=== PATIENT | male | born 1940 | race Caucasian/White ===

== ENCOUNTER 2018-11-05 11:47 | Emergency (ER) | payer MEDICARE ==
[2018-11-05 12:27] LABS: #Basophils 0.1 thou/uL (0.0-0.2); #Eosinphils 0.2 thou/uL (0.0-0.7); #Lymphocytes 1.2 thou/uL (1.20-3.40); #Monocytes 0.7 thou/uL (0.11-0.59); #Neutrophils 12.8 thou/uL (1.40-6.50); %Basophils 0.4 % (0.0-1.0); %Eosinophils 1.2 % (0.0-10.0); %Lymphocytes 7.7 % (21.0-51.0); %Monocytes 4.7 % (0.0-10.0); Hemoglobin 10.7 g/dL (14.0-18.0); Mean Corpuscular HGB CONC 31.9 g/dL (32.0-36.0); Mean Corpuscular Hemoglobin 29.1 pg (27.0-31.0); Mean Corpuscular Volume 91.3 fL (78.0-98.0); Mean Platelet Volume 5.3 fL (7.4-10.4); Platelet Count 294 thou/uL (130-400); RBC Distribution Width 13.4 % (11.5-14.5); Red Blood Cell (RBC) Count 3.67 mill/uL (4.70-6.10); White Blood Cell (WBC) Count 14.9 thou/uL (4.8-10.8)
[2018-11-05 12:41] LABS: ALT (SGPT) 57 U/L (8-55); AST (SGOT) 39 U/L (5-34); Albumin 3.5 g/dL (3.4-4.8); Alkaline Phosphatase 130 U/L (40-150); Anion Gap 19 mmol/L (10-20); BUN (Urea Nitrogen) 52 mg/dL (8.4-25.7); Bilirubin, Total 0.6 mg/dL (0.2-1.2); CK (CPK) 58 U/L (30-200); Calc. Creatinine Clearance 0 mL/min (70-130); Calcium 9.6 mg/dL (7.8-10.44); Carbon Dioxide 17 mmol/L (23-31); Chloride 102 mmol/L (98-107); Estimated GFR-MDRD 19; Globulin 5.2 g/dL (2.4-3.5); Glucose 121 mg/dL (83-110); Potassium 4.5 mmol/L (3.5-5.1); Protein, Total 8.7 g/dL (5.8-8.1); Sodium 133 mmol/L (136-145)
[2018-11-05] MEDS ORDERED: Sodium Chloride 0.9% 1,000 ML ONE ×2 (12:48→13:50)
[2018-11-05] MEDS ORDERED: Aspirin Chewable 81 MG TAB ONE ×2 (12:48→12:51)
[2018-11-05 12:59] LABS: CKMB 2.9 ng/mL (0-6.6)
--- NOTE | 2018-11-05 13:27 | RAD ---
PORTABLE AP CHEST XRAY: DATE: 11/05/2018. HISTORY: Cough and shortness of breath, chest congestion. COMPARISON: None available. FINDINGS: The cardiac silhouette and pulmonary vasculature are within normal limits. The lungs are clear. The re is mild right convex curvature of the thoracic spine. There is calcification in the thoracic aort a. 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 There jenkins s appear to be narrowing of each subacromial space partially imaged, and findings may be related to c hronic rotator cuff tears bilaterally. IMPRESSION: No acute cardiopulmonary process. POS: [facility]
[2018-11-05] MEDS ORDERED: Vancomycin HCl 500 MG VIAL ONE (13:50)
[2018-11-05] MEDS ORDERED: Sodium Chloride 0.9% 250 ML 250 ML ONE (13:50)
== END 2018-11-05 14:15 | disposition short-term general hospital (02) ==
LOC: NAV ERS 11:47
DX: I21.4 Non-ST elevation (NSTEMI) myocardial infarction (principal); I95.9 Hypotension, unspecified; I10 Essential (primary) hypertension; Z87.891 Personal history of nicotine dependence; Z79.899 Other long term (current) drug therapy
CPT/HCPCS: 36415; 71045; 80053; 82550; 82553; 83605; 84484; 85025; 87040; 93005; 96361; 96365; J3370; J7050

== ENCOUNTER 2018-11-15 21:21 | Inpatient (IN) | payer MEDICARE ==
[2018-11-15] MEDS ORDERED: Calcium Carbonate 500 MG ChewTAB PO PRN (22:22)
[2018-11-16] MEDS ORDERED: Sodium Chloride 0.9% 20 ML ONE (00:03)
[2018-11-16] MEDS: Ondansetron ODT 4 MG TAB PO PRN ×3 (00:34→11:05)
[2018-11-16] MEDS: Piperacillin/Tazobactam 2.25 GM in Sodium Chloride 0.9% 100 ML IVPB SCH ×3 (00:58→17:38)
[2018-11-16 05:18] LABS: #Eosinphils 0.3 thou/uL (0.0-0.7); #Monocytes 0.7 thou/uL (0.11-0.59); %Basophils 0.3 % (0.0-1.0); %Eosinophils 2.4 % (0.0-10.0); %Lymphocytes 8.6 % (21.0-51.0); %Monocytes 5.4 % (0.0-10.0); %Neutrophils 83.4 % (42.0-75.0); Hemoglobin 9.4 g/dL (14.0-18.0); Mean Corpuscular HGB CONC 32.4 g/dL (32.0-36.0); Mean Corpuscular Volume 92.5 fL (78.0-98.0); Mean Platelet Volume 5.6 fL (7.4-10.4); Platelet Count 233 thou/uL (130-400); Red Blood Cell (RBC) Count 3.13 mill/uL (4.70-6.10)
[2018-11-16 05:37] LABS: ALT (SGPT) 20 U/L (8-55); AST (SGOT) 19 U/L (5-34); Albumin 2.3 g/dL (3.4-4.8); Alkaline Phosphatase 88 U/L (40-150); Anion Gap 10 mmol/L (10-20); BUN (Urea Nitrogen) 21 mg/dL (8.4-25.7); Bilirubin, Total 0.4 mg/dL (0.2-1.2); Calc. Creatinine Clearance 85 mL/min (70-130); Calcium 8.6 mg/dL (7.8-10.44); Carbon Dioxide 27 mmol/L (23-31); Chloride 104 mmol/L (98-107); Estimated GFR-MDRD 57; Globulin 3.5 g/dL (2.4-3.5); Glucose 98 mg/dL (83-110); Protein, Total 5.8 g/dL (5.8-8.1); Sodium 138 mmol/L (136-145)
[2018-11-16 05:48] LABS: Potassium 2.9 mmol/L (3.5-5.1)
[2018-11-16 05:56] LABS: Bilirubin Negative (Negative); Blood, Urine Large (Negative); Clarity Slightly Cloudy (Clear); Glucose, Urine (Dipstick) Negative (Negative); Leukocyte Small (Negative); Nitrite Negative (Negative); Protein, Urine (Dipstick) 30 mg/dL (Neg-Trace); Specific Gravity, Urine 1.015 (1.005-1.030); Urobilinogen 0.2 mg/dL (0.2-1.0); pH, Urine 5.5 (5.0-9.0)
[2018-11-16 05:57] LABS: Bacteria/HPF 2+ HPF (None Seen); RBC/HPF GREATER THAN 50-TNTC HPF (0-3)
[2018-11-16] MEDS: Furosemide 40 MG TAB PO SCH ×2 (06:31→13:07)
[2018-11-16] MEDS ORDERED: Apixaban 5 MG TAB PO SCH (09:00)
[2018-11-16] MEDS: Senokot S 8.6-50 MG TAB PO SCH ×2 (09:03→21:51)
[2018-11-16] MEDS: FLAVOXATE 100 MG PO SCH ×3 (09:04→21:52)
[2018-11-16] MEDS: Trospium 20 MG TAB PO SCH ×2 (09:04→21:51)
[2018-11-16] MEDS: Tamsulosin HCl 0.4 MG CAP PO SCH (09:04)
[2018-11-16] MEDS: Polyethylene Glycol 3350 17 GM Packet PO SCH (09:05)
[2018-11-16] MEDS ORDERED: Potassium Chloride 10 MEQ in Premix Bag 1 BAG IVPB SCH (13:00)
[2018-11-16] MEDS ORDERED: Potassium Chloride 20 MEQ TAB PO SCH ×2 (13:00)
[2018-11-16] MEDS: Potassium Chloride 10 MEQ in Premix Bag 1 BAG IVPB SCH ×2 (13:03→14:34)
[2018-11-16] MEDS: D5 NS w/ 40 mEq KCl 1,000 ML IV SCH (13:07)
--- NOTE | 2018-11-16 13:38 | RAD ---
TWO VIEWS ABDOMEN: INDICATION: Hiccups with hypoactive bowel sounds. FINDINGS: There are gas-filled loops of dilated small bowel within the central abdomen. There is a gas-filled dilated loop of colon. There is fecal material seen within the right hemicolon. No acute osseous ab normality is evident. IMPRESSION: Findings suspicious for ileus versus partial small bowel obstruction. Recommend consideration for a CT of the abdomen and pelvis with IV contrast. POS: [facility]
--- NOTE | 2018-11-16 15:29 | HP ---
CHIEF COMPLAINT: Sepsis, secondary to urinary tract infection, and left lower extremity DVT and PE for long-term IV antibiotics and therapy. BRIEF HISTORY: This is a pleasant, overweight 78-year-old male who is known to me as I have taken care of him in the past, presented to the emergency room with complaints of dysuria, shortness of breath, and left lower extremity swelling. He apparently has noticed that swelling for 3 days, and on the morning of admission, he woke up with shortness of breath. He also has history of recurrent UTI. He was evaluated in the emergency room in [place] and was diagnosed with hypotension and urinary tract infection. He was hydrated with 3 L of normal saline and was given one dose of vancomycin, and sent to [facility] Emergency Room where he was given one dose of Rocephin and had a lower extremity ultrasound venous Doppler done, which showed DVT. He was started on pressors and was managed by a trade show specialist. Echocardiogram showed ejection fraction of 55% to 60%, mild mitral regurgitation, and mild tricuspid regurgitation. He also was noted to have hematuria, and a bladder ultrasound done, showed an irregularly-thickened bladder wall and some debris within the bladder. He underwent a cystoscopy and was noted to have some bladder tumors, which were biopsied by Dr. Cummins. Dr. Cummins apparently wanted him on half dose anticoagulation due to his risk of bleeding, but Critical Care and Cardiology wanted him on full dose. He also needs to be on 4 weeks of IV antibiotics here and possibly go home on IV ertapenem according to Dr. Fuchs. He is now on Eliquis 10 mg b.i.d. for 10 days, then he will be back to 5 mg b.i.d. currently, the patient is having hiccups, and he is also spitting up some brownish black mucus, which he states he has been doing since Thursday. He states that he was constipated, and he did have a bowel movement and after that transiently, he had no nausea or hiccups, but now, it is back. He apparently had a bowel movement within the last 12 hours. He denies any history of similar episodes in the past. He denies any chest pain or shortness of breath. He denies any burning sensation in his stomach. PAST MEDICAL HISTORY: Hypertension. PAST SURGICAL HISTORY: Multiple orthopedic surgeries. FAMILY HISTORY: Positive for coronary artery disease. PSYCHOSOCIAL HISTORY: He is a former smoker, more than [id number] history of smoking. He also has history of alcohol abuse in the past. No recreational drug use. REVIEW OF SYSTEMS: CARDIOVASCULAR SYSTEM: Denies any chest pain, shortness of breath, palpitations, PND, orthopnea, or pedal edema. RESPIRATORY SYSTEM: Denies any chronic cough, expectoration, or pleuritic type chest pain. GASTROINTESTINAL SYSTEM: Denies any hematemesis, melena, or hematochezia. He has had some problems with constipation, but apparently, had a bowel movement yesterday. He is having hiccups which apparently resolved when he had a bowel movement. GENITOURINARY SYSTEM: History of recurrent UTI and hematuria. Recently diagnosed with bladder tumors, possibly bladder cancer. MUSCULOSKELETAL SYSTEM: Occasional joint pains. HEENT: Denies any difficulty speech, vision, hearing, or swallowing. PHYSICAL EXAMINATION: GENERAL: A pleasant overweight 78-year-old male who is resting comfortably and in no apparent distress except for the hiccups. He has been spitting up this blackish brownish mucus/sputum. He denies any abdominal pain or discomfort. VITAL SIGNS: He is afebrile, heart rate is 75, respirations 20, oxygen saturation 95% on room air, and blood pressure 133/80. HEENT: Normocephalic, atraumatic. Pupils equal and reactive to light and accommodation. No JVD, thyromegaly, cervical lymphadenopathy, or throat exudates. No carotid bruits. CARDIOVASCULAR: S1 and S2 plus. Rate and rhythm regular. RESPIRATORY: Normal vesicular breath sounds with decreased breath sounds in the bases. ABDOMEN: Soft, obese, nontender. Bowel sounds are hypoactive. No organomegaly. No palpable mass. EXTREMITIES: Without cyanosis or clubbing. 2+ to 3+ edema to the left lower extremity. CENTRAL NERVOUS SYSTEM: Awake and responsive. He is able to recognize me from his previous visits. Cranial nerves 2 through 12 grossly nonfocal. Generalized weakness. LABORATORY VALUES: From this morning, white count is 12.0, H and H 9.4 and 28.9, and platelet count 233. Chemistry shows a sodium of 138, potassium was low at 2.9, and BUN and creatinine are 21 and 1.24. Urinalysis was done yesterday, which shows greater than 50, [id number]-count rbc's, 7 to 10 wbc's, 4 to 6 epithelial cells, and 2+ bacteria. IMPRESSION: 1. Urinary tract infection with Proteus mirabilis. 2. Left lower extremity deep venous thrombosis and pulmonary embolism. 3. Hematuria and history of recurrent urinary tract infection. 4. Possible bladder tumor. 5. Resolved sepsis and acute kidney injury and dehydration. 6. Hypokalemia. 7. Obesity. 8. Persistent hiccups and constipation. Rule out ileus or obstruction. 9. Deconditioning. 10. History of hypertension. PLAN: 1. Continue admission medications. 2. Nursing called me this morning about his potassium being 2.9. I ordered potassium 40 mEq p.o. now and repeat level at noon. Unfortunately, they gave him a dose of Lasix 40 mg. I have asked nursing now to give him 10 mEq of potassium premixed bags IV over 1 hour each, x2 bags. I also asked them to give him 40 mEq of potassium p.o. x1 now and recheck a basic metabolic panel at 5 p.m. He is also refusing his meals. I have asked him to start him on D5 normal saline with 40 mEq of potassium at 75 mL an hour. I have also ordered a stat KUB, but he may need a CT scan of the abdomen. I also advised patient that he may need an NG tube placed. 3. Continue IV Zosyn. 4. Continue Eliquis. 5. Decubitus precautions. 6. PT and OT eval and treat, but will hold them today. 7. Discussed with the patient and nursing in detail. Informed media services director to file an incident report. 8. No family at bedside. 9. Monitor respiratory status and cardiovascular status. Job ID: [id number]
[2018-11-16 17:40] LABS: Anion Gap 10 mmol/L (10-20); BUN (Urea Nitrogen) 23 mg/dL (8.4-25.7); Calc. Creatinine Clearance 85 mL/min (70-130); Calcium 8.4 mg/dL (7.8-10.44); Carbon Dioxide 27 mmol/L (23-31); Chloride 103 mmol/L (98-107); Estimated GFR-MDRD 56; Glucose 113 mg/dL (83-110); Potassium 3.4 mmol/L (3.5-5.1); Sodium 137 mmol/L (136-145)
[2018-11-16] MEDS: Enoxaparin Sodium 120 MG/0.8 ML SYRINGE SC SCH (21:50)
[2018-11-16] MEDS: Finasteride 5 MG TAB PO SCH (21:51)
[2018-11-16 22:52] VITALS: BMI 35.6
[2018-11-17] MEDS: Piperacillin/Tazobactam 2.25 GM in Sodium Chloride 0.9% 100 ML IVPB SCH ×3 (01:01→16:44)
[2018-11-17 05:09] LABS: #Eosinphils 0.4 thou/uL (0.0-0.7); #Lymphocytes 1.1 thou/uL (1.20-3.40); #Monocytes 0.6 thou/uL (0.11-0.59); #Neutrophils 7.2 thou/uL (1.40-6.50); %Basophils 0.3 % (0.0-1.0); %Eosinophils 4.7 % (0.0-10.0); %Lymphocytes 12.1 % (21.0-51.0); %Monocytes 6.7 % (0.0-10.0); %Neutrophils 76.2 % (42.0-75.0); Hemoglobin 8.9 g/dL (14.0-18.0); Mean Corpuscular HGB CONC 31.5 g/dL (32.0-36.0); Mean Corpuscular Hemoglobin 29.4 pg (27.0-31.0); Mean Corpuscular Volume 93.1 fL (78.0-98.0); Mean Platelet Volume 5.6 fL (7.4-10.4); Platelet Count 232 thou/uL (130-400); RBC Distribution Width 15.1 % (11.5-14.5); Red Blood Cell (RBC) Count 3.04 mill/uL (4.70-6.10); White Blood Cell (WBC) Count 9.4 thou/uL (4.8-10.8)
[2018-11-17 05:28] LABS: Anion Gap 9 mmol/L (10-20); BUN (Urea Nitrogen) 23 mg/dL (8.4-25.7); Calc. Creatinine Clearance 80 mL/min (70-130); Calcium 8.2 mg/dL (7.8-10.44); Carbon Dioxide 28 mmol/L (23-31); Chloride 106 mmol/L (98-107); Estimated GFR-MDRD 52; Glucose 110 mg/dL (83-110); Potassium 3.5 mmol/L (3.5-5.1); Sodium 139 mmol/L (136-145)
[2018-11-17] MEDS: D5 NS w/ 40 mEq KCl 1,000 ML IV SCH ×4 (06:09→20:42)
[2018-11-17] MEDS: Enoxaparin Sodium 120 MG/0.8 ML SYRINGE SC SCH ×2 (09:31→20:41)
[2018-11-17] MEDS: FLAVOXATE 100 MG PO SCH ×3 (09:32→20:41)
[2018-11-17] MEDS: Tamsulosin HCl 0.4 MG CAP PO SCH (09:33)
[2018-11-17] MEDS: Trospium 20 MG TAB PO SCH ×2 (09:33→20:42)
[2018-11-17] MEDS: Senokot S 8.6-50 MG TAB PO SCH ×2 (09:33→20:41)
[2018-11-17] MEDS: Polyethylene Glycol 3350 17 GM Packet PO SCH (09:33)
[2018-11-17] MEDS: Pantoprazole 40 MG VIAL IVP SCH (09:34)
--- NOTE | 2018-11-17 10:12 | RAD ---
KUB: Comparison: None. History: Coffee ground emesis and abdominal pain. Evaluate for obstruction. FINDINGS: Anterior views of the abdomen shows a nonspecific, nonobstructed bowel gas pattern. Air is seen in th e stomach and within the colon. No suspicious calcifications are seen. Degenerative changes are seen in the spine. IMPRESSION: No evidence of obstruction. POS: [facility]
--- NOTE | 2018-11-17 12:53 | PRG ---
DATE OF SERVICE: 11/17/2018 SUBJECTIVE: Mr. Rosales is feeling better this morning. He is passing some gas. His hiccups has reduced greatly. No further vomiting. KUB done this morning shows improvement and no obvious evidence for obstruction. He has been started on a clear liquid diet. He apparently refused therapy this morning and I reinforced to him and his the importance of him getting up and moving around, which would help both with his bowels as well as him getting stronger and going home sooner. He is on continuous bladder irrigation and it is completely clear. I advised nursing to contact Dr. Cummins and see if it can be stopped or at least reduce to q.shift or daily. He is tolerating his IV fluids and his Lovenox. OBJECTIVE: VITAL SIGNS: He is afebrile, heart rate 68, respirations 20, oxygen saturation 95% on room air, blood pressure 128/68. CARDIOVASCULAR SYSTEM: S1, S2 plus. RESPIRATORY SYSTEM: Normal vesicular breath sounds. ABDOMEN: Soft, nontender. Bowel sounds are heard, more active than yesterday, but still not back to normal. EXTREMITIES: Without cyanosis or clubbing. Significant edema, left lower extremity, about 3+ from his DVT. LABORATORY DATA: White count is normal at 9.4 today, H and H are 8.9 and 28.3. Sodium 139, potassium 3.5, BUN and creatinine are 23 and 1.33. IMPRESSION: 1. Resolved hypokalemia. 2. Resolved leukocytosis. 3. Left lower extremity deep venous thrombosis and pulmonary embolism. 4. Likely ileus, which is resolving. 5. Recent diagnosis of bladder tumor and hematuria, which has improved. 6. Resolving urinary tract infection with Proteus. 7. Deconditioning. PLAN: 1. I advised the patient to work with therapy. 2. Discussed with nursing and see if they can place a bariatric bedside commode for him. 3. Clear liquid diets. 4. If he continues to tolerate tomorrow, we will advance him to low-salt diet and change his Protonix to p.o. and change his Lovenox to Eliquis p.o. 5. Nursing to talk with Dr. Cummins about decreasing or the frequency of CBD or eliminating it. 6. Brito catheter care. 7. Monitor for any vomiting. 8. Continue IV antibiotics. 9. Recheck laboratory values in the morning. 10. If he is tolerating p.o. intake, then tomorrow we will stop his IV fluids. Discussed with the patient and in detail. All questions answered. Job ID: [id number]
[2018-11-17] MEDS: Finasteride 5 MG TAB PO SCH (20:41)
[2018-11-18] MEDS: Piperacillin/Tazobactam 2.25 GM in Sodium Chloride 0.9% 100 ML IVPB SCH ×3 (00:42→16:57)
[2018-11-18 05:07] LABS: #Eosinphils 0.5 thou/uL (0.0-0.7); #Monocytes 0.5 thou/uL (0.11-0.59); #Neutrophils 5.3 thou/uL (1.40-6.50); %Basophils 0.4 % (0.0-1.0); %Eosinophils 6.4 % (0.0-10.0); %Monocytes 7.3 % (0.0-10.0); Hemoglobin 8.6 g/dL (14.0-18.0); Mean Corpuscular HGB CONC 31.5 g/dL (32.0-36.0); Mean Corpuscular Hemoglobin 29.3 pg (27.0-31.0); Mean Corpuscular Volume 93.3 fL (78.0-98.0); Mean Platelet Volume 5.7 fL (7.4-10.4); Platelet Count 197 thou/uL (130-400); Red Blood Cell (RBC) Count 2.92 mill/uL (4.70-6.10); White Blood Cell (WBC) Count 7.3 thou/uL (4.8-10.8)
[2018-11-18 05:24] LABS: Anion Gap 8 mmol/L (10-20); BUN (Urea Nitrogen) 15 mg/dL (8.4-25.7); Calc. Creatinine Clearance 93 mL/min (70-130); Calcium 7.9 mg/dL (7.8-10.44); Carbon Dioxide 25 mmol/L (23-31); Chloride 106 mmol/L (98-107); Estimated GFR-MDRD 62; Glucose 103 mg/dL (83-110); Potassium 3.4 mmol/L (3.5-5.1); Sodium 136 mmol/L (136-145)
[2018-11-18] MEDS: Pantoprazole 40 MG VIAL IVP SCH (08:58)
[2018-11-18] MEDS: FLAVOXATE 100 MG PO SCH ×3 (08:59→22:13)
[2018-11-18] MEDS: Senokot S 8.6-50 MG TAB PO SCH ×2 (08:59→22:12)
[2018-11-18] MEDS: Tamsulosin HCl 0.4 MG CAP PO SCH (08:59)
[2018-11-18] MEDS: Polyethylene Glycol 3350 17 GM Packet PO SCH (08:59)
[2018-11-18] MEDS: Trospium 20 MG TAB PO SCH ×2 (09:00→22:12)
[2018-11-18] MEDS: Enoxaparin Sodium 120 MG/0.8 ML SYRINGE SC SCH (09:09)
[2018-11-18] MEDS: D5 NS w/ 40 mEq KCl 1,000 ML IV SCH ×2 (09:09→09:10)
[2018-11-18] MEDS ORDERED: Potassium Chloride 20 MEQ TAB PO SCH (09:45)
[2018-11-18] MEDS: traMADol HCl 50 MG TAB PO PRN (11:06)
--- NOTE | 2018-11-18 13:52 | PRG ---
DATE OF SERVICE: 11/18/2018 SUBJECTIVE: Mr. Rosales is feeling better. He wants to have something good to eat. He had a pretty large mucousy bowel movement yesterday per nursing. Plan is to advance him to a full liquid diet and then to a regular diet, but he does not want a full liquid diet. He wants to get straight to regular. He does understand the risks. I started him on heart healthy diet which he tolerated without any issues. Also advised nursing to have Therapy provided him a knee brace so that they can get him up and moving. The patient apparently was taking tramadol in the past and he is complaining of significant pains about him back on the tramadol and his pain went from a level 8 to level 2 and he is feeling a lot better. OBJECTIVE: VITAL SIGNS: He is afebrile. Heart rate 69, respirations 20, oxygen saturation 95% on room air, blood pressure 136/76. CARDIOVASCULAR SYSTEM: S1-S2 plus. RESPIRATORY SYSTEM: Normal vesicular breath sounds. ABDOMEN: Soft, nontender. Bowel sounds in all quadrants. EXTREMITIES: Without cyanosis, clubbing, still with significant edema in his left lower extremity 3 to 4+. LABORATORY DATA: His white count is 7.3, H and H is 8.6 and 27.2 with a platelet count of 197. Sodium 136, potassium is low again at 3.4. BUN and creatinine 15 and 1.14. IMPRESSION: 1. Resolved paralytic ileus. 2. Improving hypokalemia. 3. Left lower extremity deep venous thrombosis and pulmonary embolus. 4. Hypertension. 5. Possible bladder cancer. 6. Significant deconditioning. 7. Resolved paralytic ileus. PLAN: 1. Discontinue IV fluids. 2. Continue heart healthy diet as tolerated. 3. Knee brace and physical therapy. 4. Potassium 40 mEq p.o. x1 now. 5. Recheck laboratory values in the morning, including CBC and BMP. 6. Since he is tolerating p.o., switch him back to Eliquis 10 mg b.i.d. and discontinue Lovenox. 7. Change Protonix to p.o. 8. Discussed with the patient in detail and all questions answered. No family at bedside. Job ID: [id number]
[2018-11-18] MEDS ORDERED: Sodium Chloride 0.9% 10 ML ONE (16:38)
[2018-11-18] MEDS: Apixaban 5 MG TAB PO SCH (22:12)
[2018-11-18] MEDS: Finasteride 5 MG TAB PO SCH (22:13)
[2018-11-19] MEDS: Piperacillin/Tazobactam 2.25 GM in Sodium Chloride 0.9% 100 ML IVPB SCH ×3 (01:02→17:10)
[2018-11-19 05:59] LABS: #Eosinphils 0.4 thou/uL (0.0-0.7); #Monocytes 0.5 thou/uL (0.11-0.59); #Neutrophils 5.6 thou/uL (1.40-6.50); %Basophils 0.6 % (0.0-1.0); %Eosinophils 4.9 % (0.0-10.0); %Lymphocytes 13.1 % (21.0-51.0); %Monocytes 6.1 % (0.0-10.0); %Neutrophils 75.4 % (42.0-75.0); Hemoglobin 8.3 g/dL (14.0-18.0); Mean Corpuscular HGB CONC 30.8 g/dL (32.0-36.0); Mean Corpuscular Hemoglobin 28.8 pg (27.0-31.0); Mean Corpuscular Volume 93.5 fL (78.0-98.0); Platelet Count 194 thou/uL (130-400); RBC Distribution Width 15.3 % (11.5-14.5); Red Blood Cell (RBC) Count 2.89 mill/uL (4.70-6.10); White Blood Cell (WBC) Count 7.5 thou/uL (4.8-10.8)
[2018-11-19 06:15] LABS: Anion Gap 8 mmol/L (10-20); BUN (Urea Nitrogen) 13 mg/dL (8.4-25.7); Calc. Creatinine Clearance 84 mL/min (70-130); Calcium 8.1 mg/dL (7.8-10.44); Carbon Dioxide 25 mmol/L (23-31); Chloride 105 mmol/L (98-107); Estimated GFR-MDRD 56; Glucose 94 mg/dL (83-110); Potassium 3.2 mmol/L (3.5-5.1); Sodium 135 mmol/L (136-145)
[2018-11-19] MEDS: traMADol HCl 50 MG TAB PO PRN (09:06)
[2018-11-19] MEDS: Trospium 20 MG TAB PO SCH ×2 (09:07→21:51)
[2018-11-19] MEDS: Polyethylene Glycol 3350 17 GM Packet PO SCH (09:08)
[2018-11-19] MEDS: Acetaminophen 325 MG TAB PO PRN (09:08)
[2018-11-19] MEDS: Apixaban 5 MG TAB PO SCH ×2 (09:08→21:49)
[2018-11-19] MEDS: Tamsulosin HCl 0.4 MG CAP PO SCH (09:08)
[2018-11-19] MEDS: FLAVOXATE 100 MG PO SCH ×3 (09:53→21:51)
[2018-11-19] MEDS ORDERED: Potassium Chloride 20 MEQ TAB PO SCH (10:30)
--- NOTE | 2018-11-19 10:42 | PRG ---
DATE OF SERVICE: 11/19/2018 SUBJECTIVE: Mr. Rosales is doing well. He is up in his chair. He had a good bowel movement. He is tolerating his p.o. intake. He still has some burping and hiccups occasionally. His is in the room. He is wondering when he can go home and I again explained to the patient that as soon as he is able to do the things necessary to help his take care of him at home. From a safety standpoint, he can be discharged. I also advised him that he can leave any time AMA if he is not happy. OBJECTIVE: VITAL SIGNS: He is afebrile, heart rate 67, respirations 22, oxygen saturation 95% on room air, and blood pressure 126/72. CARDIOVASCULAR SYSTEM: S1 and S2 plus. RESPIRATORY SYSTEM: Normal vesicular breath sounds. ABDOMEN: Soft, obese, and nontender. Bowel sounds in all quadrants. EXTREMITIES: Without cyanosis or clubbing. 3+ edema to left lower extremity. No change. CENTRAL NERVOUS SYSTEM: A, A, and O x3. Cranial nerves 2 through 12 intact. Generalized weakness. LABORATORY VALUES: White count is 7.5 and H and H 8.3 and 27.1. Sodium 135, potassium 3.2, and BUN and creatinine are 13 and 1.26. IMPRESSION: 1. Left lower extremity deep venous thrombosis and pulmonary embolism, on chronic anticoagulation. 2. Recent diagnosis of bladder tumor after hematuria. Hematuria has since resolved. 3. Has been having some melanotic stools with slight drop in H and H, but he anticoagulation. 4. Hypokalemia, fluctuating. 5. Hypertension. 6. History of tobacco abuse and resolved paralytic ileus. 7. Urosepsis from Proteus mirabilis. PLAN: 1. Replace potassium. 2. Continue IV antibiotics. 3. Increase activity. 4. Monitor for any recurrence of ileus. 5. Deep venous thrombosis and stress ulcer prophylaxis, is already on Eliquis. 6. Increase pantoprazole to 40 mg b.i.d. given that he is having melanotic stools, and his H and H are slowly dropping. 7. Continue physical therapy. Nutritional support with heart healthy diet. 8. Discussed with the patient and in detail. 9. Daily CBC and BMP. 10. Dr. Schmid on-call this weekend. Job ID: [id number]
[2018-11-19] MEDS: Potassium Chloride 20 MEQ TAB PO SCH (17:11)
[2018-11-19] MEDS: Finasteride 5 MG TAB PO SCH (21:52)
[2018-11-19] MEDS: Senokot S 8.6-50 MG TAB PO SCH (21:52)
[2018-11-20] MEDS: Piperacillin/Tazobactam 2.25 GM in Sodium Chloride 0.9% 100 ML IVPB SCH ×3 (01:19→17:50)
[2018-11-20 06:29] LABS: #Eosinphils 0.3 thou/uL (0.0-0.7); #Monocytes 0.5 thou/uL (0.11-0.59); #Neutrophils 6.3 thou/uL (1.40-6.50); %Basophils 0.4 % (0.0-1.0); %Eosinophils 3.6 % (0.0-10.0); %Lymphocytes 12.4 % (21.0-51.0); %Monocytes 5.8 % (0.0-10.0); %Neutrophils 77.8 % (42.0-75.0); Hemoglobin 8.3 g/dL (14.0-18.0); Mean Corpuscular HGB CONC 31.1 g/dL (32.0-36.0); Mean Corpuscular Hemoglobin 29.2 pg (27.0-31.0); Mean Corpuscular Volume 93.6 fL (78.0-98.0); Platelet Count 193 thou/uL (130-400); RBC Distribution Width 15.5 % (11.5-14.5); Red Blood Cell (RBC) Count 2.86 mill/uL (4.70-6.10); White Blood Cell (WBC) Count 8.1 thou/uL (4.8-10.8)
[2018-11-20 06:35] LABS: Anion Gap 10 mmol/L (10-20); BUN (Urea Nitrogen) 16 mg/dL (8.4-25.7); Calc. Creatinine Clearance 83 mL/min (70-130); Calcium 8.3 mg/dL (7.8-10.44); Carbon Dioxide 23 mmol/L (23-31); Chloride 106 mmol/L (98-107); Estimated GFR-MDRD 55; Glucose 105 mg/dL (83-110); Magnesium 1.5 mg/dL (1.6-2.6); Potassium 3.5 mmol/L (3.5-5.1); Sodium 135 mmol/L (136-145)
[2018-11-20] MEDS: Apixaban 5 MG TAB PO SCH ×2 (08:53→19:54)
[2018-11-20] MEDS: Tamsulosin HCl 0.4 MG CAP PO SCH (08:53)
[2018-11-20] MEDS: Potassium Chloride 20 MEQ TAB PO SCH ×2 (08:53→17:49)
[2018-11-20] MEDS: Polyethylene Glycol 3350 17 GM Packet PO SCH (08:54)
[2018-11-20] MEDS: Trospium 20 MG TAB PO SCH ×2 (08:54→19:56)
[2018-11-20] MEDS: FLAVOXATE 100 MG PO SCH ×3 (08:54→19:55)
[2018-11-20] MEDS: Senokot S 8.6-50 MG TAB PO SCH ×2 (08:55→19:56)
[2018-11-20] MEDS: Finasteride 5 MG TAB PO SCH (19:55)
[2018-11-21] MEDS ORDERED: Sodium Chloride 0.9% 10 ML ONE (00:27)
[2018-11-21] MEDS: Piperacillin/Tazobactam 2.25 GM in Sodium Chloride 0.9% 100 ML IVPB SCH ×3 (00:40→17:35)
[2018-11-21] MEDS: Trospium 20 MG TAB PO SCH ×2 (08:20→19:25)
[2018-11-21] MEDS: Tamsulosin HCl 0.4 MG CAP PO SCH (08:20)
[2018-11-21] MEDS: Potassium Chloride 20 MEQ TAB PO SCH ×2 (08:20→17:36)
[2018-11-21] MEDS: Apixaban 5 MG TAB PO SCH ×2 (08:20→19:24)
[2018-11-21] MEDS: Senokot S 8.6-50 MG TAB PO SCH ×2 (08:21→19:25)
[2018-11-21] MEDS: FLAVOXATE 100 MG PO SCH ×3 (08:21→19:25)
[2018-11-21] MEDS: Polyethylene Glycol 3350 17 GM Packet PO SCH (08:21)
--- NOTE | 2018-11-21 11:45 | PRG ---
DATE OF SERVICE: 11/20/2018 SUBJECTIVE: The patient is sitting up in bed watching TV. States that he is ready to go home and wants more therapy. I explained that his therapy is not available again till Thursday, but if he does well on Thursday, then maybe he can discuss with the therapist discharge planning. He is having no problems with further hematuria or melena. He is having no headaches or dizziness. OBJECTIVE: Shows white count is 8100, hematocrit 26, hemoglobin 8.3. Sodium 135, potassium 3.5, chloride 106, bicarb 23, BUN 16, creatinine 1.2, glucose ranging low at 55 to 62. ASSESSMENT: 1. Resolving deep vein thrombosis, on full-dose anticoagulation. 2. Resolving urosepsis, on IV meropenem. 3. Resolved potassium, lower limits of normal at this time. PLAN: Continue oral potassium. Continue IV antibiotics. Continue PT, OT. Continue full-dose anticoagulation. Discussed discharge planning with PT. Job ID: [id number]
[2018-11-21] MEDS: Finasteride 5 MG TAB PO SCH (19:25)
--- NOTE | 2018-11-21 19:58 | PRG ---
DATE OF SERVICE: 11/21/2018 SUBJECTIVE: The patient lying in the bed, resting. States he feels well. No complaints, wanting to go home. Does state that his edema in his legs is improving. OBJECTIVE: VITAL SIGNS: Shows his temperature is 98.5, pulse 78, respirations 18, O2 sats 92% on room air, blood pressure 125/67. LUNGS: Clear. CARDIAC: Examination shows regular rhythm. ABDOMEN: Soft, nontender. SKIN/EXTREMITIES: Shows 3+ edema both legs, left worse than right. ASSESSMENT: 1. Resolving urinary tract infection with sepsis, on IV piperacillin for four weeks and we will discuss PICC line placement with Dr. Pradhan. 2. Deep venous thrombosis and pulmonary embolus, on chronic anticoagulation with apixaban with no evidence of bleeding. 3. History of bladder tumor with no further hematuria. 4. Hypertension, controlled to goal. 5. No evidence of recurrent ileus. PLAN: 1. Discussed PICC line with Dr. Pradhan. Schedule. 2. Continue IV meropenem. 3. Continue anticoagulation of deep venous thrombosis. 4. Stress elevation of legs. 5. Obtain chest x-ray in the a.m. Job ID: [id number]
[2018-11-22] MEDS: Piperacillin/Tazobactam 2.25 GM in Sodium Chloride 0.9% 100 ML IVPB SCH ×3 (00:32→16:49)
[2018-11-22 05:39] LABS: #Eosinphils 0.3 thou/uL (0.0-0.7); #Lymphocytes 1.1 thou/uL (1.20-3.40); #Monocytes 0.5 thou/uL (0.11-0.59); #Neutrophils 3.6 thou/uL (1.40-6.50); %Basophils 0.8 % (0.0-1.0); %Eosinophils 5.6 % (0.0-10.0); %Monocytes 8.5 % (0.0-10.0); %Neutrophils 65.1 % (42.0-75.0); Anion Gap 11 mmol/L (10-20); BUN (Urea Nitrogen) 14 mg/dL (8.4-25.7); Calc. Creatinine Clearance 75 mL/min (70-130); Calcium 8.6 mg/dL (7.8-10.44); Carbon Dioxide 23 mmol/L (23-31); Chloride 107 mmol/L (98-107); Estimated GFR-MDRD 48; Glucose 104 mg/dL (83-110); Hemoglobin 8.5 g/dL (14.0-18.0); Mean Corpuscular HGB CONC 30.9 g/dL (32.0-36.0); Mean Corpuscular Hemoglobin 29.1 pg (27.0-31.0); Mean Platelet Volume 5.9 fL (7.4-10.4); Platelet Count 174 thou/uL (130-400); RBC Distribution Width 15.2 % (11.5-14.5); Red Blood Cell (RBC) Count 2.91 mill/uL (4.70-6.10); Sodium 137 mmol/L (136-145); White Blood Cell (WBC) Count 5.5 thou/uL (4.8-10.8)
[2018-11-22] MEDS ORDERED: Sodium Chloride 0.9% 10 ML ONE ×2 (08:50→16:19)
[2018-11-22] MEDS: Potassium Chloride 20 MEQ TAB PO SCH ×2 (09:12→16:50)
[2018-11-22] MEDS: FLAVOXATE 100 MG PO SCH ×3 (09:14→20:51)
[2018-11-22] MEDS: Trospium 20 MG TAB PO SCH ×2 (09:16→20:51)
[2018-11-22] MEDS: Senokot S 8.6-50 MG TAB PO SCH ×2 (09:16→20:52)
[2018-11-22] MEDS: Tamsulosin HCl 0.4 MG CAP PO SCH (09:16)
[2018-11-22] MEDS: Polyethylene Glycol 3350 17 GM Packet PO SCH (09:16)
[2018-11-22] MEDS: Apixaban 5 MG TAB PO SCH ×3 (09:45→20:51)
--- NOTE | 2018-11-22 10:09 | PRG ---
DATE OF SERVICE: 11/22/2018 SUBJECTIVE: Mr. Rosales is doing well. Denies any complaints. He states that he needs to go out on a pass on Thursday because he needs to go to the bank. I advised him to work with Therapy today and inform them about his need to go to the bank and able. Make sure, he is safe to do the steps and get in and out of the car and then, I can send him out on a pass. If they deemed him not safe, then unfortunately, I cannot send him out on a pass, but again I gave him the option that he can always leave against medical advice. His leg swelling seems to be slightly better. He denies any chest pain or shortness of breath. He is lying flat on his back. His is in the room. OBJECTIVE: VITAL SIGNS: He is afebrile, heart rate 73, respirations 20, oxygen saturation 93% on room air, and blood pressure 140/76. CARDIOVASCULAR SYSTEM: S1 and S2 plus. RESPIRATORY SYSTEM: Normal vesicular breath sounds. ABDOMEN: Soft and nontender. Bowel sounds heard in all quadrants. EXTREMITIES: Without cyanosis or clubbing. 3+ edema left lower extremity. Trace edema right leg. LABORATORY DATA: But, his workup is negative for any heart failure. His albumin level though is low at 2.3. IMPRESSION: 1. Left lower extremity deep venous thrombosis and pulmonary embolism on Eliquis. 2. Hypertension. 3. Resolved ileus. 4. Urinary tract infection with Proteus requiring long-term IV antibiotics. 5. Benign prostatic hyperplasia, requiring Brito catheter placement with possible bladder tumor. PLAN: 1. Continue IV Zosyn. 2. For some reason, they removed his PICC line when they sent him over, but he requires IV antibiotics for the foreseeable future. So asked nursing to schedule him for a PICC line placement. 3. Work with Therapy, especially with trying to get in and out of the car, so we can try to send him out on pass on Thursday. 4. Nutritional support. 5. DVT and stress ulcer prophylaxis. 6. Decubitus precaution. 7. Brito catheter care. 8. Discussed with the patient and and nursing. Job ID: [id number]
--- NOTE | 2018-11-22 10:57 | RAD ---
FRONTAL RADIOGRAPH CHEST PORTABLE SUPINE: DATE: 11/22/2018. COMPARISON: 11/05/2018. HISTORY: Congestive heart failure. FINDINGS: Stable prominence of the cardiac silhouette. Stable mild diffuse increased linear interstitial densi ty. No pneumothorax, pleural fluid, lobar consolidation, or alveolar edema. Patient positioning kaye its assessment for pleural fluid and pneumothorax. IMPRESSION: No focal consolidation or alveolar edema. POS: [facility]
[2018-11-22] MEDS: Finasteride 5 MG TAB PO SCH (20:52)
[2018-11-22] MEDS ORDERED: Apixaban 5 MG TAB PO SCH (21:00)
[2018-11-23] MEDS: Piperacillin/Tazobactam 2.25 GM in Sodium Chloride 0.9% 100 ML IVPB SCH ×3 (01:05→14:24)
[2018-11-23] MEDS ORDERED: Sodium Chloride 0.9% 10 ML ONE (07:45)
[2018-11-23] MEDS: Potassium Chloride 20 MEQ TAB PO SCH ×2 (08:00→16:55)
[2018-11-23] MEDS: Tamsulosin HCl 0.4 MG CAP PO SCH (08:01)
[2018-11-23] MEDS: Apixaban 5 MG TAB PO SCH ×2 (08:01→20:51)
[2018-11-23] MEDS: FLAVOXATE 100 MG PO SCH ×3 (08:01→20:51)
[2018-11-23] MEDS: Senokot S 8.6-50 MG TAB PO SCH ×2 (08:02→20:51)
[2018-11-23] MEDS: Polyethylene Glycol 3350 17 GM Packet PO SCH (08:02)
[2018-11-23] MEDS: Trospium 20 MG TAB PO SCH ×2 (08:02→20:51)
--- NOTE | 2018-11-23 14:20 | PRG ---
DATE OF SERVICE: 11/23/2018 SUBJECTIVE: Mr. Rosales just came back from having his PICC line placed. He worked with getting in and out of the car yesterday as he needs to go to the bank tomorrow. Nurse spoke with therapy, and they stated that he is safe to go out and pass as long as he goes with his . No concerns or questions. He is slowly improving with therapy. Still having some diarrhea, and all stool softeners have been discontinued. OBJECTIVE: VITAL SIGNS: He is afebrile, heart rate is 79, respirations 24, oxygen saturation 93% on room air, and blood pressure 142/80. CARDIOVASCULAR SYSTEM: S1 and S2 plus. RESPIRATORY SYSTEM: Normal vesicular breath sounds. ABDOMEN: Soft, nontender. Bowel sounds heard in all quadrants. EXTREMITIES: Without cyanosis or clubbing. 3+ edema to left lower extremity. CENTRAL NERVOUS SYSTEM: A, A, and O x3. Cranial nerves 2 through 12 intact. IMPRESSION: 1. Left lower extremity deep venous thrombosis and pulmonary embolism, on long-term anticoagulation. 2. Hypertension. 3. Urinary retention, requiring Brito catheter placement. 4. Bladder tumor. 5. History of tobacco abuse. 6. Resolved intestinal obstruction versus ileus. 7. Resolved hypokalemia and deconditioning. PLAN: 1. Continue current medications. 2. Nutritional support with heart healthy diet. 3. DVT and stress ulcer prophylaxis. He is on Eliquis. 4. Decubitus precautions. 5. Stress ulcer prophylaxis. 6. Communication order written to nursing that he is okay to go out and pass to the bank and come back. 7. Continue physical therapy. 8. PICC line care. 9. Antibiotics. 10. Weekly CBC, CRP, and sedimentation rate. 11. Discussed with the patient, , and nursing in detail. All questions answered. Job ID: [id number]
[2018-11-23] MEDS: Finasteride 5 MG TAB PO SCH (20:51)
[2018-11-24] MEDS: Piperacillin/Tazobactam 2.25 GM in Sodium Chloride 0.9% 100 ML IVPB SCH ×3 (01:00→17:40)
[2018-11-24] MEDS: Trospium 20 MG TAB PO SCH ×2 (08:29→19:52)
[2018-11-24] MEDS: Apixaban 5 MG TAB PO SCH ×2 (08:29→19:53)
[2018-11-24] MEDS: Senokot S 8.6-50 MG TAB PO SCH ×2 (08:29→19:53)
[2018-11-24] MEDS: Tamsulosin HCl 0.4 MG CAP PO SCH (08:29)
[2018-11-24] MEDS: Potassium Chloride 20 MEQ TAB PO SCH ×2 (08:29→17:40)
[2018-11-24] MEDS: Polyethylene Glycol 3350 17 GM Packet PO SCH (08:30)
[2018-11-24] MEDS: FLAVOXATE 100 MG PO SCH ×3 (08:30→19:53)
--- NOTE | 2018-11-24 14:01 | PRG ---
DATE OF SERVICE: 11/24/2018 SUBJECTIVE: Mr. Rosales is doing well. He went out on pass and did not give any issues. He did scrape his left leg on the wheelchair. No bleeding. His left leg swelling is much improved. He wants to come back to see me as his PCP. OBJECTIVE: VITAL SIGNS: He is afebrile. Heart rate 76, respirations 18, oxygen saturation 96% on room air, blood pressure 118/68. CARDIOVASCULAR: S1, S2 plus. RESPIRATORY: Clear breath sounds. ABDOMEN: Soft, nontender. Bowel sounds heard in all quadrants. EXTREMITIES: Without cyanosis, clubbing, improving left lower extremity edema. Brito catheter in place. CENTRAL NERVOUS SYSTEM: A and O x3. Cranial nerves 2 through 12 intact. Improving deconditioning. IMPRESSION: 1. Bladder tumor. 2. Urinary retention, requiring Brito catheter. 3. Resolved hematuria. 4. Urinary tract infection with Proteus requiring long-term antibiotics. 5. Hypertension. 6. Left lower extremity deep vein thrombosis and pulmonary embolism. PLAN: 1. Continue current medications. 2. Monitor blood pressure. 3. Heart healthy diet. 4. Watch for any signs of bleeding. 5. Physical therapy. 6. Brito catheter care. 7. Routine laboratory values. 8. Discharge planning. Job ID: [id number]
[2018-11-24] MEDS ORDERED: Sodium Chloride 0.9% 10 ML ONE (17:32)
[2018-11-24] MEDS: Finasteride 5 MG TAB PO SCH (19:53)
[2018-11-25] MEDS ORDERED: Sodium Chloride 0.9% 10 ML ONE (02:31)
[2018-11-25] MEDS: Piperacillin/Tazobactam 2.25 GM in Sodium Chloride 0.9% 100 ML IVPB SCH ×3 (02:38→17:31)
[2018-11-25] MEDS: Senokot S 8.6-50 MG TAB PO SCH ×2 (08:36→21:23)
[2018-11-25] MEDS: Trospium 20 MG TAB PO SCH ×2 (08:36→21:23)
[2018-11-25] MEDS: Apixaban 5 MG TAB PO SCH ×2 (08:36→21:22)
[2018-11-25] MEDS: Tamsulosin HCl 0.4 MG CAP PO SCH (08:37)
[2018-11-25] MEDS: Potassium Chloride 20 MEQ TAB PO SCH ×2 (08:56→17:29)
[2018-11-25] MEDS: FLAVOXATE 100 MG PO SCH ×3 (09:22→21:23)
[2018-11-25] MEDS: Polyethylene Glycol 3350 17 GM Packet PO SCH (09:22)
--- NOTE | 2018-11-25 14:08 | PRG ---
DATE OF SERVICE: 11/25/2018 SUBJECTIVE: Mr. Rosales is doing well. Denies any complaints. He accepts he did feel lightheaded this morning. His systolic blood pressure was in the low 100s. He lied down and he is feeling much better now. I advised him to make sure he drinks plenty of water. Discussed with therapy and they stated that from their standpoint, he is stable to be discharged tomorrow. Advise nursing to start working and arrange for his outpatient antibiotics. He is supposed to be on it for a total of 1 month. He has [facility] arranged, but I advised them to call Dr. Fuchs and see if he is going to arrange for the antibiotics or whether we need to. Case Management has also been informed. OBJECTIVE: VITAL SIGNS: He is afebrile. Heart rate 77, respirations 16, oxygen saturation 95% on room air, and blood pressure 114/53. CARDIOVASCULAR SYSTEM: S1 and S2 plus. RESPIRATORY SYSTEM: Normal vesicular breath sounds. ABDOMEN: Soft, obese, and nontender. Bowel sounds heard in all quadrants. EXTREMITIES: Without cyanosis, clubbing, much improved swelling in his left lower extremity. It is down to 1+. Brito catheter in place. CENTRAL NERVOUS SYSTEM: AAO x3. Cranial nerves 2 through 12 intact. IMPRESSION: 1. Left lower extremity deep venous thrombosis and pulmonary embolism. 2. Possible bladder tumor. 3. Urinary retention, requiring Brito catheter. 4. Hypertension. 5. Anemia. 6. Urinary tract infection with Proteus, requiring long-term antibiotics. PLAN: 1. Continue current medications. 2. Heart healthy diet. 3. Brito catheter care. 4. Continue physical therapy. 5. Discharge planning. Case Management has been informed. Home health has been arranged. Nursing to contact Dr. Fuchs and find out about the ertapenem dosing and duration and Case Management to arrange it. I advised the patient that he may be discharged tomorrow, but it may not be until Thursday. His is in the room. All questions answered. Job ID: [id number]
[2018-11-25] MEDS: Finasteride 5 MG TAB PO SCH (21:23)
[2018-11-26] MEDS: Piperacillin/Tazobactam 2.25 GM in Sodium Chloride 0.9% 100 ML IVPB SCH ×3 (01:26→18:58)
[2018-11-26] MEDS: Potassium Chloride 20 MEQ TAB PO SCH ×2 (08:38→17:30)
[2018-11-26] MEDS: Tamsulosin HCl 0.4 MG CAP PO SCH (08:38)
[2018-11-26] MEDS: Senokot S 8.6-50 MG TAB PO SCH ×2 (08:38→20:25)
[2018-11-26] MEDS: Apixaban 5 MG TAB PO SCH ×2 (08:38→20:25)
[2018-11-26] MEDS: Trospium 20 MG TAB PO SCH ×2 (08:43→20:26)
[2018-11-26] MEDS: Polyethylene Glycol 3350 17 GM Packet PO SCH (12:06)
[2018-11-26] MEDS: FLAVOXATE 100 MG PO SCH ×3 (12:06→20:25)
[2018-11-26] MEDS: Finasteride 5 MG TAB PO SCH (20:25)
[2018-11-27] MEDS: Piperacillin/Tazobactam 2.25 GM in Sodium Chloride 0.9% 100 ML IVPB SCH ×3 (00:57→16:57)
[2018-11-27] MEDS: Apixaban 5 MG TAB PO SCH ×2 (08:25→20:43)
[2018-11-27] MEDS: Potassium Chloride 20 MEQ TAB PO SCH ×2 (08:25→16:57)
[2018-11-27] MEDS: FLAVOXATE 100 MG PO SCH ×3 (08:26→20:43)
[2018-11-27] MEDS: Polyethylene Glycol 3350 17 GM Packet PO SCH (08:26)
[2018-11-27] MEDS: Senokot S 8.6-50 MG TAB PO SCH ×2 (08:26→20:44)
[2018-11-27] MEDS: Trospium 20 MG TAB PO SCH ×2 (08:27→20:43)
[2018-11-27] MEDS: Tamsulosin HCl 0.4 MG CAP PO SCH (08:27)
--- NOTE | 2018-11-27 08:29 | PRG ---
DATE OF SERVICE: 11/27/2018 SUBJECTIVE: Mr. Rosales is a very pleasant 78-year-old white male, who complained of shortness of breath and left lower extremity swelling. He was determined to have a urinary tract infection with sepsis and a DVT and pulmonary embolus. He was admitted to the intensive care unit and eventually stabilized. Eventually, he was transferred to [facility] for physical therapy and occupational therapy to increase his strength and his stamina. The patient states he is doing well today and is just waiting on breakfast. He states that they worked him really hard in therapy yesterday and was found to have a couple days off. He is also noted to have recent history of tumors and BPH, but presently that workup is being placed on hold and will be done as an outpatient. The patient states he is doing well today and has no complaints. OBJECTIVE: VITAL SIGNS: Today reveal blood pressure 141/76, pulse 71 to 75, respirations 20, O2 saturation 93% to 94% on room air and T-max 98.7. GENERAL: This is a well-developed, well-nourished, slightly obese white male, in no apparent distress at this time. HEENT: Reveals normocephalic and nontraumatic cranium. Pupils are equal, round and reactive. Extraocular movements are intact. Nose and throat are slightly dry and clear. NECK: Supple without masses, nodes, or bruits. CHEST: Clear to auscultation. No rales, no rhonchi, no wheezes are heard. No cough is noted. HEART: Reveals a regular rate and rhythm without murmurs, gallops, or rubs. ABDOMEN: Soft, nontender without organomegaly. Normal bowel sounds are heard in all 4 quadrants. No rebound or guarding is noted. : Reveals Brito catheter intact. EXTREMITIES: Reveal no clubbing or cyanosis. Trace edema. NEUROLOGIC: The patient is oriented x3. ASSESSMENT: 1. Left lower extremity deep venous thrombosis with swelling significantly decreased. 2. Recent pulmonary embolism. 3. Possible bladder tumor. 4. Urinary retention with Brito catheter in place. 5. Hypertension. 6. Anemia. 7. Urinary tract infection with Proteus, requiring long-term antibiotics. PLAN: 1. Continue present therapy. 2. Catheter care. 3. Continue present medications with antibiotics per Dr. Fuchs. 4. The patient will eventually be switched over to Invanz and we will have IV antibiotics at home. 5. Continue physical therapy and occupational therapy. 6. Supportive care. Job ID: [id number]
[2018-11-27] MEDS: Acetaminophen 325 MG TAB PO PRN (11:25)
[2018-11-27] MEDS: Finasteride 5 MG TAB PO SCH (20:43)
[2018-11-28] MEDS: Piperacillin/Tazobactam 2.25 GM in Sodium Chloride 0.9% 100 ML IVPB SCH ×3 (01:10→16:40)
--- NOTE | 2018-11-28 07:52 | PRG ---
DATE OF SERVICE: 11/28/2018 SUBJECTIVE: Mr. Rosales is a very pleasant 78-year-old white male. He was home and has some shortness of breath with left lower extremity swelling. He was brought to the emergency room and was found to have a DVT and a pulmonary embolus. He was admitted to the intensive care unit. He eventually stabilized and then transferred to [facility] for PT and OT. He is here to increase his strength and stamina. The patient states he is doing well today except he does complain of eyes being somewhat irritated. He occasionally takes eyedrops at home to lubricate his eyes since he has dry eyes. OBJECTIVE: VITAL SIGNS: Today reveal, blood pressure 123/76, pulse 71 to 75, respirations 18 to 20, O2 saturation 93% to 95% on room air, T-max 97.5. GENERAL: This is a well-developed, well-nourished, very pleasant, 78-year-old white male, in no apparent distress at this time. HEENT: Normocephalic and nontraumatic cranium. Pupils are equally round and reactive. Slightly irritated and dry. Extraocular movements are intact. Nose and throat are clear and moist. NECK: Supple without masses, nodes, or bruits. CHEST: Clear to auscultation. No rales, rhonchi, wheezes, or cough is noted. HEART: Reveals a regular rate and rhythm without murmurs, gallops, or rubs. ABDOMEN: Soft and nontender without organomegaly. Normal bowel sounds are noted in all 4 quadrants. No rebound or guarding is noted. : Reveals Brito catheter intact and clear urine is draining. EXTREMITIES: Reveal no clubbing, cyanosis, with occasional trace edema. NEUROLOGIC: The patient is oriented x3. ASSESSMENT: 1. Deep venous thrombosis, left lower extremity with continued decrease in swelling. 2. Recent pulmonary embolism. 3. Possible bladder tumor. 4. Urinary retention with Brito catheter in place. 5. Hypertension. 6. Anemia. 7. Proteus growing in his urine, requiring long-term IV antibiotics. PLAN: 1. Continue with catheter care. 2. Continue with antibiotics per Dr. Fuchs. 3. Continue present medications with occasional switch over to Invanz when the patient is ready for discharge to home for IV antibiotics. 4. Continue physical therapy and occupational therapy. 5. Continue supportive care. Job ID: [id number]
[2018-11-28] MEDS: Potassium Chloride 20 MEQ TAB PO SCH ×2 (08:46→16:42)
[2018-11-28] MEDS: Apixaban 5 MG TAB PO SCH ×2 (08:46→21:42)
[2018-11-28] MEDS: Senokot S 8.6-50 MG TAB PO SCH ×2 (08:47→21:42)
[2018-11-28] MEDS: FLAVOXATE 100 MG PO SCH ×3 (08:47→21:42)
[2018-11-28] MEDS: Polyethylene Glycol 3350 17 GM Packet PO SCH (08:47)
[2018-11-28] MEDS: Tamsulosin HCl 0.4 MG CAP PO SCH (08:48)
[2018-11-28] MEDS: Trospium 20 MG TAB PO SCH ×2 (08:48→21:42)
[2018-11-28] MEDS: Finasteride 5 MG TAB PO SCH (21:42)
[2018-11-29] MEDS: Piperacillin/Tazobactam 2.25 GM in Sodium Chloride 0.9% 100 ML IVPB SCH ×3 (00:53→17:33)
[2018-11-29] MEDS: Potassium Chloride 20 MEQ TAB PO SCH ×2 (08:46→17:34)
[2018-11-29] MEDS: Apixaban 5 MG TAB PO SCH ×2 (08:47→20:45)
[2018-11-29] MEDS: FLAVOXATE 100 MG PO SCH ×3 (08:47→20:46)
[2018-11-29] MEDS: Trospium 20 MG TAB PO SCH ×2 (08:47→20:46)
[2018-11-29] MEDS: Tamsulosin HCl 0.4 MG CAP PO SCH (08:47)
[2018-11-29] MEDS: Polyethylene Glycol 3350 17 GM Packet PO SCH (08:48)
[2018-11-29] MEDS: Senokot S 8.6-50 MG TAB PO SCH ×2 (08:49→20:46)
--- NOTE | 2018-11-29 14:57 | PRG ---
DATE OF SERVICE: 11/29/2018 SUBJECTIVE: Mr. Rosales is doing well. Denies any complaints. Resting comfortably. His spouse is in the room now. He states that he does not want to do outpatient antibiotic and would prefer to just stay here and complete it. He knows that the antibiotics goes till the , informed nursing to pass on the information to the nursing supervisor respiratory to see if any insurance authorization needs to be done. OBJECTIVE: VITAL SIGNS: He is afebrile. Heart rate 73, respirations 20, oxygen saturation 95% on room air, blood pressure 130/68. CARDIOVASCULAR: S1, S2 plus. RESPIRATORY: Normal vesicular breath sounds. ABDOMEN: Soft, obese, nontender. Bowel sounds heard in all quadrants. EXTREMITIES: Without cyanosis, clubbing. Left leg swelling has pretty much resolved. CENTRAL NERVOUS SYSTEM: A, A, O x3. Cranial nerves 2 through 12 intact. Generalized weakness. IMPRESSION: 1. Left lower extremity deep vein thrombosis and pulmonary embolism. 2. Urinary tract infection with Proteus. 3. Hypertension. 4. Resolved paralytic ileus. 5. Resolved hypokalemia. 6. Anemia, likely due to chronic disease, stable and improving deconditioning. PLAN: 1. Continue current medications. 2. Nutritional support. 3. Monitor blood pressure and adjust medications as needed. 4. DVT and stress ulcer prophylaxis. 5. Decubitus precautions. 6. Routine laboratory values. 7. Continue IV antibiotics till 12/11. 8. Continue physical therapy. 9. Discussed with the patient and family in detail. All questions answered. Job ID: [id number]
[2018-11-29] MEDS: Finasteride 5 MG TAB PO SCH (20:45)
[2018-11-30] MEDS: Piperacillin/Tazobactam 2.25 GM in Sodium Chloride 0.9% 100 ML IVPB SCH ×4 (00:10→17:31)
[2018-11-30] MEDS: Potassium Chloride 20 MEQ TAB PO SCH ×2 (08:17→17:31)
[2018-11-30] MEDS: Senokot S 8.6-50 MG TAB PO SCH ×2 (08:17→20:22)
[2018-11-30] MEDS: Apixaban 5 MG TAB PO SCH ×2 (08:17→20:22)
[2018-11-30] MEDS: Trospium 20 MG TAB PO SCH ×2 (08:17→20:22)
[2018-11-30] MEDS: Tamsulosin HCl 0.4 MG CAP PO SCH (08:17)
[2018-11-30] MEDS: Polyethylene Glycol 3350 17 GM Packet PO SCH (08:18)
[2018-11-30] MEDS: FLAVOXATE 100 MG PO SCH ×3 (08:18→20:22)
[2018-11-30] MEDS ORDERED: Piperacillin/Tazobactam 2.25 GM VIAL ONE (08:19)
--- NOTE | 2018-11-30 13:16 | PRG ---
DATE OF SERVICE: 11/30/2018 SUBJECTIVE: Mr. Rosales is doing well. Denies any complaints. Resting comfortably. Tolerating his therapy. He states that he needs to go out on pass on . His is in the room. No concerns or questions. OBJECTIVE: VITAL SIGNS: He is afebrile. Heart rate 76, respirations 19, oxygen saturation 95% on room air, and blood pressure 119/65. CARDIOVASCULAR: S1 and S2 plus. RESPIRATORY: Normal vesicular breath sounds. ABDOMEN: Soft and nontender. Bowel sounds heard in all quadrants. EXTREMITIES: Without cyanosis or clubbing. Left leg swelling is much improved. IMPRESSION: 1. Left lower extremity deep venous thrombosis and pulmonary embolism. 2. Urinary tract infection requiring long-term antibiotics. 3. Hypertension. 4. Improving deconditioning. 5. Resolved ileus. PLAN: 1. Continue current medications. 2. Nutritional support. 3. DVT and stress ulcer prophylaxis. 4. Decubitus precautions. 5. Continue antibiotics until the . 6. Discharge planning. 7. Okay to go on pass if okay with Therapy and nursing. Discussed with the patient and in detail. Continue therapy. Job ID: [id number]
[2018-11-30] MEDS: Finasteride 5 MG TAB PO SCH (20:22)
[2018-12-01] MEDS: Piperacillin/Tazobactam 2.25 GM in Sodium Chloride 0.9% 100 ML IVPB SCH ×3 (00:44→17:15)
[2018-12-01] MEDS: FLAVOXATE 100 MG PO SCH ×3 (08:40→20:35)
[2018-12-01] MEDS: Apixaban 5 MG TAB PO SCH ×2 (08:40→20:34)
[2018-12-01] MEDS: Potassium Chloride 20 MEQ TAB PO SCH ×2 (08:40→17:16)
[2018-12-01] MEDS: Senokot S 8.6-50 MG TAB PO SCH (08:41)
[2018-12-01] MEDS: Polyethylene Glycol 3350 17 GM Packet PO SCH (08:41)
[2018-12-01] MEDS: Tamsulosin HCl 0.4 MG CAP PO SCH (08:42)
[2018-12-01] MEDS: Trospium 20 MG TAB PO SCH ×2 (08:42→20:35)
[2018-12-01] MEDS: Finasteride 5 MG TAB PO SCH (20:34)
[2018-12-02] MEDS: Senokot S 8.6-50 MG TAB PO SCH ×3 (00:21→20:03)
[2018-12-02] MEDS: Piperacillin/Tazobactam 2.25 GM in Sodium Chloride 0.9% 100 ML IVPB SCH ×3 (00:22→16:25)
[2018-12-02] MEDS: Apixaban 5 MG TAB PO SCH ×2 (08:27→20:03)
[2018-12-02] MEDS: Potassium Chloride 20 MEQ TAB PO SCH ×2 (08:27→16:26)
[2018-12-02] MEDS: FLAVOXATE 100 MG PO SCH ×3 (08:28→20:04)
[2018-12-02] MEDS: Polyethylene Glycol 3350 17 GM Packet PO SCH (08:28)
[2018-12-02] MEDS: Trospium 20 MG TAB PO SCH ×2 (08:29→20:03)
[2018-12-02] MEDS: Tamsulosin HCl 0.4 MG CAP PO SCH (08:29)
[2018-12-02] MEDS: Acetaminophen 325 MG TAB PO PRN (13:38)
[2018-12-02] MEDS: traMADol HCl 50 MG TAB PO PRN (13:38)
--- NOTE | 2018-12-02 14:06 | PRG ---
DATE OF SERVICE: 12/02/2018 SUBJECTIVE: Mr. Rosales is doing well. He just came back from going out on pass. Denies any concerns or questions. Tolerating his medications. OBJECTIVE: VITAL SIGNS: He is afebrile. Heart rate 74, respirations 22, oxygen saturation 92% on room air, and blood pressure 130/60. CARDIOVASCULAR SYSTEM: S1 and S2 plus. RESPIRATORY SYSTEM: Normal vesicular breath sounds. ABDOMEN: Soft, obese, and nontender. Bowel sounds heard in all quadrants. EXTREMITIES: Without cyanosis or clubbing. Swelling has pretty much resolved. CENTRAL NERVOUS SYSTEM: AAO x3. Cranial nerves 2 through 12 intact. Improving deconditioning. IMPRESSION: 1. Left lower extremity deep venous thrombosis and pulmonary embolism. 2. Urinary tract infection with Proteus, requiring long-term IV antibiotics. 3. Urinary retention, requiring Brito catheter placement. 4. Hypertension. 5. Resolved ileus. 6. Improving deconditioning. PLAN: 1. Continue current medications. 2. Low-sodium diet. 3. Nutritional support. 4. DVT and stress ulcer prophylaxis. 5. Decubitus precautions. 6. Brito catheter care. 7. Routine laboratory values. 8. Continue IV Zosyn until the . 9. The patient apparently has followup appointment scheduled with Dr. Cummins on the . The patient and state that they are fine in taking care of Brito and they do not need any home health at this time. They initially had agreed for home health when they thought he will need IV antibiotics and he was also much less strong at that time. Job ID: [id number]
[2018-12-02] MEDS: Finasteride 5 MG TAB PO SCH (20:03)
[2018-12-03] MEDS: Piperacillin/Tazobactam 2.25 GM in Sodium Chloride 0.9% 100 ML IVPB SCH ×3 (00:45→17:19)
[2018-12-03] MEDS: Potassium Chloride 20 MEQ TAB PO SCH ×2 (08:49→17:18)
[2018-12-03] MEDS: Trospium 20 MG TAB PO SCH ×2 (08:49→20:57)
[2018-12-03] MEDS: Apixaban 5 MG TAB PO SCH ×2 (08:49→20:57)
[2018-12-03] MEDS: Polyethylene Glycol 3350 17 GM Packet PO SCH (08:50)
[2018-12-03] MEDS: Senokot S 8.6-50 MG TAB PO SCH ×2 (08:50→20:56)
[2018-12-03] MEDS: Tamsulosin HCl 0.4 MG CAP PO SCH (08:50)
[2018-12-03] MEDS: FLAVOXATE 100 MG PO SCH ×3 (08:51→20:57)
[2018-12-03] MEDS: Finasteride 5 MG TAB PO SCH (20:56)
[2018-12-04] MEDS: Piperacillin/Tazobactam 2.25 GM in Sodium Chloride 0.9% 100 ML IVPB SCH ×3 (00:58→17:13)
[2018-12-04] MEDS: Tamsulosin HCl 0.4 MG CAP PO SCH (09:27)
[2018-12-04] MEDS: Potassium Chloride 20 MEQ TAB PO SCH ×2 (09:27→17:15)
[2018-12-04] MEDS: Apixaban 5 MG TAB PO SCH ×2 (09:27→20:39)
[2018-12-04] MEDS: Senokot S 8.6-50 MG TAB PO SCH ×2 (09:28→20:38)
[2018-12-04] MEDS: Trospium 20 MG TAB PO SCH ×2 (09:28→20:40)
[2018-12-04] MEDS: Polyethylene Glycol 3350 17 GM Packet PO SCH (09:28)
[2018-12-04] MEDS: FLAVOXATE 100 MG PO SCH ×3 (09:29→20:38)
--- NOTE | 2018-12-04 16:51 | PRG ---
DATE OF SERVICE: 12/04/2018 SUBJECTIVE: Mr. Rosales is doing well. Denies any complaints. Resting comfortably. Tolerating his antibiotics. OBJECTIVE: VITAL SIGNS: He is afebrile, heart rate 80, respirations 20, oxygen saturation 95% on room air, and blood pressure 125/70. CARDIOVASCULAR SYSTEM: S1 and S2 plus. RESPIRATORY SYSTEM: Normal vesicular breath sounds. ABDOMEN: Soft and nontender. Bowel sounds heard in all quadrants. EXTREMITIES: Without cyanosis or clubbing. Resolved left lower extremity edema. CENTRAL NERVOUS SYSTEM: AAO x3. Cranial nerves 2 through 12 intact. Improving deconditioning. IMPRESSION: 1. Left lower extremity deep vein thrombosis and pulmonary embolism. 2. Urinary tract infection with Proteus, requiring long-term IV antibiotics, ends on December 11. 3. Urinary retention, requiring Brito catheter placement. 4. Hypertension. 5. Improving deconditioning. PLAN: 1. Continue current medications. 2. Nutritional support. 3. DVT and stress ulcer prophylaxis. 4. Decubitus precautions. 5. Routine laboratory values. 6. Brito catheter care. 7. Monitor blood pressure and adjust medications as needed. 8. Discussed with the patient in detail and all questions answered. 9. Continue physical therapy. Job ID: [id number]
[2018-12-04] MEDS: Finasteride 5 MG TAB PO SCH (20:39)
[2018-12-05] MEDS: Piperacillin/Tazobactam 2.25 GM in Sodium Chloride 0.9% 100 ML IVPB SCH ×3 (00:30→17:18)
[2018-12-05] MEDS: Potassium Chloride 20 MEQ TAB PO SCH ×2 (08:46→17:14)
[2018-12-05] MEDS: Senokot S 8.6-50 MG TAB PO SCH ×2 (08:47→20:54)
[2018-12-05] MEDS: Trospium 20 MG TAB PO SCH ×2 (08:47→20:55)
[2018-12-05] MEDS: Tamsulosin HCl 0.4 MG CAP PO SCH (08:48)
[2018-12-05] MEDS: Apixaban 5 MG TAB PO SCH ×2 (08:49→20:55)
[2018-12-05] MEDS: FLAVOXATE 100 MG PO SCH ×3 (08:52→20:54)
[2018-12-05] MEDS: Polyethylene Glycol 3350 17 GM Packet PO SCH (09:05)
--- NOTE | 2018-12-05 16:01 | PRG ---
DATE OF SERVICE: 12/05/2018 SUBJECTIVE: Mr. Rosales is doing well. His spouse is in the room. He apparently enjoyed his lunch immensely. No concerns or questions. OBJECTIVE: VITAL SIGNS: He is afebrile, heart rate 75, respirations 18, oxygen saturation 93% on room air, and blood pressure 133/67. CARDIOVASCULAR SYSTEM: S1 and S2 plus. RESPIRATORY SYSTEM: Normal vesicular breath sounds. ABDOMEN: Soft, nontender. Bowel sounds heard in all quadrants. EXTREMITIES: Without cyanosis or clubbing. Peripheral pulses are palpable. CENTRAL NERVOUS SYSTEM: AAO x3. Cranial nerves 2 through 12 intact. Improving deconditioning. IMPRESSION: 1. Left lower extremity deep venous thrombosis and pulmonary embolism. 2. Urinary tract infection with Proteus, requiring IV antibiotics till the . 3. Urinary retention, requiring Brito catheter placement. 4. Possible bladder tumor. 5. Hypertension. 6. Improving deconditioning. PLAN: 1. Continue current medications. 2. Low-sodium diet. 3. DVT prophylaxis - he is on Eliquis. 4. Decubitus precautions. 5. Brito catheter care. Continue Zosyn till December 11. 6. Routine laboratory values. 7. Physical therapy. 8. Discussed with the patient and family in detail. All questions answered. Job ID: [id number]
[2018-12-05] MEDS: Finasteride 5 MG TAB PO SCH (20:55)
[2018-12-06] MEDS: Piperacillin/Tazobactam 2.25 GM in Sodium Chloride 0.9% 100 ML IVPB SCH ×3 (01:26→16:49)
[2018-12-06] MEDS: Apixaban 5 MG TAB PO SCH ×2 (08:38→20:05)
[2018-12-06] MEDS: Potassium Chloride 20 MEQ TAB PO SCH ×2 (08:38→16:49)
[2018-12-06] MEDS: Senokot S 8.6-50 MG TAB PO SCH ×2 (08:39→20:05)
[2018-12-06] MEDS: FLAVOXATE 100 MG PO SCH ×3 (08:39→20:05)
[2018-12-06] MEDS: Polyethylene Glycol 3350 17 GM Packet PO SCH (08:39)
[2018-12-06] MEDS: Tamsulosin HCl 0.4 MG CAP PO SCH (08:40)
[2018-12-06] MEDS: Trospium 20 MG TAB PO SCH ×2 (08:40→20:05)
[2018-12-06] MEDS: Finasteride 5 MG TAB PO SCH (20:04)
[2018-12-07] MEDS: Piperacillin/Tazobactam 2.25 GM in Sodium Chloride 0.9% 100 ML IVPB SCH ×3 (00:28→16:31)
[2018-12-07] MEDS: Apixaban 5 MG TAB PO SCH ×2 (08:24→20:44)
[2018-12-07] MEDS: Potassium Chloride 20 MEQ TAB PO SCH ×2 (08:24→16:31)
[2018-12-07] MEDS: FLAVOXATE 100 MG PO SCH ×3 (08:25→20:45)
[2018-12-07] MEDS: Senokot S 8.6-50 MG TAB PO SCH ×2 (08:26→20:45)
[2018-12-07] MEDS: Polyethylene Glycol 3350 17 GM Packet PO SCH (08:26)
[2018-12-07] MEDS: Trospium 20 MG TAB PO SCH ×2 (08:27→20:44)
[2018-12-07] MEDS: Tamsulosin HCl 0.4 MG CAP PO SCH (08:27)
[2018-12-07] MEDS: Acetaminophen 325 MG TAB PO PRN (08:33)
[2018-12-07] MEDS: traMADol HCl 50 MG TAB PO PRN (08:33)
--- NOTE | 2018-12-07 15:16 | PRG ---
DATE OF SERVICE: 12/07/2018 SUBJECTIVE: Mr. Rosales is doing the same. Denies any complaints. Resting comfortably. He has some visitors in his room. His spouse is also in the room. He states that he would need another pass to go out on . Tolerating his antibiotics. No concerns or questions. OBJECTIVE: VITAL SIGNS: He is afebrile. Heart rate 71, respirations 20, oxygen saturation 96% on room air, blood pressure 131/81. CARDIOVASCULAR: S1, S2 plus. RESPIRATORY: Normal vesicular breath sounds. ABDOMEN: Soft, nontender. Bowel sounds heard in all quadrants. EXTREMITIES: Without cyanosis or clubbing. Peripheral pulses are palpable. IMPRESSION: 1. Urinary tract infection with protease requiring IV antibiotics till the . 2. Lower left lower extremity deep vein thrombosis and pulmonary embolism. 3. Hypertension. 4. Benign prostatic hypertrophy. 5. Urinary retention requiring Brito catheter. 6. Possible bladder tumor. PLAN: 1. Continue current medications. 2. Nutritional support. 3. DVT and stress ulcer prophylaxis. 4. Decubitus precautions. 5. Continue Zosyn. 6. Recheck laboratory values in the morning. 7. Continue therapy. 8. Discussed with the patient and family in detail. All questions answered. Job ID: [id number]
[2018-12-07] MEDS: Finasteride 5 MG TAB PO SCH (20:45)
[2018-12-08] MEDS: Piperacillin/Tazobactam 2.25 GM in Sodium Chloride 0.9% 100 ML IVPB SCH ×3 (01:50→17:33)
[2018-12-08 05:12] LABS: #Basophils 0.1 thou/uL (0.0-0.2); #Eosinphils 0.4 thou/uL (0.0-0.7); #Lymphocytes 1.4 thou/uL (1.20-3.40); #Monocytes 0.7 thou/uL (0.11-0.59); #Neutrophils 6.6 thou/uL (1.40-6.50); %Basophils 0.8 % (0.0-1.0); %Eosinophils 4.9 % (0.0-10.0); %Lymphocytes 15.4 % (21.0-51.0); %Monocytes 7.7 % (0.0-10.0); %Neutrophils 71.2 % (42.0-75.0); Hemoglobin 10.9 g/dL (14.0-18.0); Mean Corpuscular HGB CONC 30.8 g/dL (32.0-36.0); Mean Corpuscular Hemoglobin 28.5 pg (27.0-31.0); Mean Corpuscular Volume 92.6 fL (78.0-98.0); Mean Platelet Volume 5.3 fL (7.4-10.4); Platelet Count 268 thou/uL (130-400); RBC Distribution Width 13.8 % (11.5-14.5); Red Blood Cell (RBC) Count 3.81 mill/uL (4.70-6.10); White Blood Cell (WBC) Count 9.2 thou/uL (4.8-10.8)
[2018-12-08 05:27] LABS: Anion Gap 12 mmol/L (10-20); BUN (Urea Nitrogen) 25 mg/dL (8.4-25.7); Calc. Creatinine Clearance 68 mL/min (70-130); Calcium 9.5 mg/dL (7.8-10.44); Carbon Dioxide 23 mmol/L (23-31); Chloride 103 mmol/L (98-107); Estimated GFR-MDRD 43; Glucose 96 mg/dL (83-110); Potassium 4.5 mmol/L (3.5-5.1); Sodium 133 mmol/L (136-145)
[2018-12-08] MEDS: Potassium Chloride 20 MEQ TAB PO SCH ×2 (08:59→17:32)
[2018-12-08] MEDS: Tamsulosin HCl 0.4 MG CAP PO SCH (08:59)
[2018-12-08] MEDS: Apixaban 5 MG TAB PO SCH ×2 (08:59→20:11)
[2018-12-08] MEDS: Senokot S 8.6-50 MG TAB PO SCH ×2 (08:59→20:12)
[2018-12-08] MEDS: Trospium 20 MG TAB PO SCH ×2 (08:59→20:12)
[2018-12-08] MEDS: FLAVOXATE 100 MG PO SCH ×3 (09:00→20:12)
[2018-12-08] MEDS: Polyethylene Glycol 3350 17 GM Packet PO SCH (09:00)
[2018-12-08] MEDS: Finasteride 5 MG TAB PO SCH (20:11)
[2018-12-09] MEDS: Piperacillin/Tazobactam 2.25 GM in Sodium Chloride 0.9% 100 ML IVPB SCH ×3 (03:04→17:46)
[2018-12-09] MEDS: Trospium 20 MG TAB PO SCH ×2 (08:09→21:06)
[2018-12-09] MEDS: Potassium Chloride 20 MEQ TAB PO SCH ×2 (08:09→17:45)
[2018-12-09] MEDS: Tamsulosin HCl 0.4 MG CAP PO SCH (08:09)
[2018-12-09] MEDS: Apixaban 5 MG TAB PO SCH ×2 (08:09→21:06)
[2018-12-09] MEDS: Senokot S 8.6-50 MG TAB PO SCH ×2 (08:10→21:06)
[2018-12-09] MEDS: Polyethylene Glycol 3350 17 GM Packet PO SCH (08:10)
[2018-12-09] MEDS: FLAVOXATE 100 MG PO SCH ×3 (08:10→21:06)
--- NOTE | 2018-12-09 14:01 | PRG ---
DATE OF SERVICE: 12/09/2018 SUBJECTIVE: Mr. Rosales is doing well. Denies any complaints. Had a good day out on pass, had his work done. He apparently is not working with therapy any more. They have discharged him. He states that he is pretty much back to his baseline from the strengthening standpoint. He is leaving on Thursday and he states that he really does not need any prescriptions. I advised him Dr. Fortune will be seeing him and will be discharging home. I advised him to follow up in my office in two weeks after he has followed up with Urology. His spouse is in the room. OBJECTIVE: VITAL SIGNS: He is afebrile. Heart rate 75, respirations 20, oxygen saturation 94% on room air, and blood pressure 128/77. CARDIOVASCULAR: S1 and S2 plus. RESPIRATORY: Normal vesicular breath sounds. ABDOMEN: Soft, nontender. Bowel sounds heard in all quadrants. Obese. EXTREMITIES: Without cyanosis or clubbing. IMPRESSION: 1. Left lower extremity deep venous thrombosis and pulmonary embolism, on Eliquis. 2. Possible bladder tumor. 3. Urinary retention, requiring Brito catheter. 4. Improving deconditioning. 5. Urinary tract infection with Proteus requiring IV antibiotics until December 11. 6. Hyponatremia and mild renal insufficiency, likely prerenal. PLAN: 1. Continue current medications. 2. Nutritional support. 3. Heart healthy diet. 4. DVT and stress ulcer prophylaxis. He is on Eliquis. 5. Decubitus precautions. 6. Stress ulcer prophylaxis. 7. Routine laboratory values look pretty good. His white count is 9.2, H and H are 10.9 and 35.3, sodium 133, potassium 4.5, BUN and creatinine are 25 and 1.56. 8. Encouraged the patient to drink more water. 9. The patient was advised to call us with any questions or concerns. Dr. Fortune to assume care until he is discharged on Thursday. Job ID: [id number]
[2018-12-09] MEDS: Finasteride 5 MG TAB PO SCH (21:06)
[2018-12-10] MEDS: Piperacillin/Tazobactam 2.25 GM in Sodium Chloride 0.9% 100 ML IVPB SCH ×3 (00:44→16:39)
[2018-12-10] MEDS: Acetaminophen 325 MG TAB PO PRN (01:32)
[2018-12-10] MEDS: Potassium Chloride 20 MEQ TAB PO SCH ×2 (08:09→16:37)
[2018-12-10] MEDS: Tamsulosin HCl 0.4 MG CAP PO SCH (08:11)
[2018-12-10] MEDS: Trospium 20 MG TAB PO SCH ×2 (08:11→20:06)
[2018-12-10] MEDS: Apixaban 5 MG TAB PO SCH ×2 (08:11→20:05)
[2018-12-10] MEDS: Senokot S 8.6-50 MG TAB PO SCH ×2 (08:12→20:06)
[2018-12-10] MEDS: Polyethylene Glycol 3350 17 GM Packet PO SCH (08:13)
[2018-12-10] MEDS: FLAVOXATE 100 MG PO SCH ×3 (08:13→20:29)
[2018-12-10] MEDS: Finasteride 5 MG TAB PO SCH (20:05)
[2018-12-11] MEDS: Piperacillin/Tazobactam 2.25 GM in Sodium Chloride 0.9% 100 ML IVPB SCH ×3 (00:48→16:44)
--- NOTE | 2018-12-11 08:19 | PRG ---
DATE OF SERVICE: 12/11/2018 Mr. Rosales is a 78-year-old white male who at home had significant shortness of breath and lower extremity swelling. He went to the emergency room, was found to have a DVT and pulmonary embolus. He was admitted to the intensive care unit, have actually stabilized and transferred to [facility]. He is here for physical therapy and occupational therapy. SUBJECTIVE: The patient states he is doing well and his is in the room with him. He states he finished his antibiotics today, which is correct and he will be discharged tomorrow. Dr. Roy did recommend that I give him his prescription for his apixaban 5 mg 1 p.o. b.i.d., so he can get it filled today or his can get it filled today and they will have it when he is discharged tomorrow. PHYSICAL EXAMINATION: VITAL SIGNS: Reveal blood pressure this morning 128/62, pulse 77 to 84, respirations 18 to 20, O2 saturation 95% on room air, and T-max 98.4. GENERAL: This is a well-developed, well-nourished, slightly obese white male, in no apparent distress at this time. HEENT: Normocephalic and nontraumatic cranium. Pupils are equally round and reactive. Extraocular movements are intact. Nose and throat are clear and moist. NECK: Supple without masses, nodes, or bruits. CHEST: Clear to auscultation. No rales, rhonchi, or wheezes are heard. Heart, no cough is noted. HEART: Reveals a regular rate and rhythm without murmurs, gallops, or rubs. ABDOMEN: Soft, nontender without organomegaly. Normal bowel sounds are noted in all 4 quadrants. No rebound or guarding is noted. : Deferred, reveals Brito catheter, clear urine draining. EXTREMITIES: Reveal no clubbing, cyanosis, or edema. The patient is oriented x3. The patient's is in the room. ASSESSMENT: 1. Deep venous thrombosis, left lower extremity with decreased swelling. 2. Recent history of pulmonary embolism. 3. Urinary retention with Brito catheter in place. 4. Questionable bladder tumor. 5. Hypertension. 6. Anemia. 7. Proteus growing in his urine, requiring long-term IV antibiotics, which finishes tomorrow. 8. Generalized weakness. PLAN: 1. Continue catheter care. 2. Antibiotics was stopped today and the patient will be discharged tomorrow per Dr. Fuchs recommendation. 3. Continue present medications. 4. Continue physical therapy and occupational therapy. 5. Continue supportive care. Job ID: [id number]
[2018-12-11] MEDS: Apixaban 5 MG TAB PO SCH ×2 (08:43→21:23)
[2018-12-11] MEDS: Potassium Chloride 20 MEQ TAB PO SCH ×2 (08:43→16:44)
[2018-12-11] MEDS: FLAVOXATE 100 MG PO SCH ×3 (08:44→21:24)
[2018-12-11] MEDS: Senokot S 8.6-50 MG TAB PO SCH ×2 (08:45→21:24)
[2018-12-11] MEDS: Polyethylene Glycol 3350 17 GM Packet PO SCH (08:45)
[2018-12-11] MEDS: Trospium 20 MG TAB PO SCH ×2 (08:46→21:23)
[2018-12-11] MEDS: Tamsulosin HCl 0.4 MG CAP PO SCH (08:46)
[2018-12-11] MEDS: Finasteride 5 MG TAB PO SCH (21:23)
[2018-12-12] MEDS: Piperacillin/Tazobactam 2.25 GM in Sodium Chloride 0.9% 100 ML IVPB SCH ×3 (01:05→17:44)
[2018-12-12] MEDS ORDERED: Warfarin Sodium 5 MG TAB PO SCH (08:15)
[2018-12-12] MEDS: Potassium Chloride 20 MEQ TAB PO SCH ×2 (08:25→17:44)
[2018-12-12] MEDS: Senokot S 8.6-50 MG TAB PO SCH ×2 (08:26→20:46)
[2018-12-12] MEDS: Apixaban 5 MG TAB PO SCH ×2 (08:27→20:45)
[2018-12-12] MEDS: Trospium 20 MG TAB PO SCH ×2 (08:28→20:55)
[2018-12-12] MEDS: Tamsulosin HCl 0.4 MG CAP PO SCH (08:28)
[2018-12-12] MEDS: Polyethylene Glycol 3350 17 GM Packet PO SCH (08:37)
[2018-12-12] MEDS: FLAVOXATE 100 MG PO SCH ×3 (08:38→20:45)
--- NOTE | 2018-12-12 10:05 | PRG ---
DATE OF SERVICE: 12/12/2018 SUBJECTIVE: Mr. Rosales is a very pleasant 78-year-old white male, who had significant shortness of breath and lower extremity swelling. He went to the emergency room, was found to have a DVT with pulmonary embolus. He was admitted to the intensive care unit where he was stabilized. He spent several days in the hospital, transferred to [facility] for continued IV antibiotics here. He finished his antibiotics yesterday. He is supposed to be going home today. The patient is on Eliquis for his DVT and pulmonary embolism for a total of 6 months. I gave the patient and his the prescription yesterday for apixaban 5 mg b.i.d. for them to get filled. His went to the pharmacy and found out it was 600 dollars with insurance was 400 dollars a month. They stated that they could not afford that, so she did not get it filled. The patient is at risk for recurrent DVTs, so therefore after significant discussion this morning, they elected to start warfarin therapy. We will start him off on 10 mg this morning, again 10 mg in the morning and when he gets to a therapeutic level between 2 and 3, he can be discharged. OBJECTIVE: VITAL SIGNS: Today reveal a blood pressure 114/55, pulse 74 to 81, respirations 18 to 22, O2 saturation 94% to 96% on room air, T-max 99.0. GENERAL: This is a well-developed, well-nourished, pleasant 78-year-old white male, who states he cannot afford his medication. Therefore, he will get started on Coumadin. HEENT: Normocephalic and nontraumatic cranium. Pupils are equal, round, and reactive. Extraocular movements are intact. Nose and throat are slightly dry. NECK: Supple without masses, nodes, or bruits. CHEST: Clear to auscultation. No rales. No rhonchi. No wheezes or cough is noted. HEART: Reveals a regular rate and rhythm without murmurs, gallops, or rubs. ABDOMEN: Soft, nontender. Normal bowel sounds are noted. No rebound or guarding is noted. : Reveals Brito catheter in place draining clear urine. EXTREMITIES: Reveal no clubbing, cyanosis, or edema. The patient is oriented x3. The patient's is in the room and they both decided that they cannot afford his medication Eliquis. ASSESSMENT: 1. Deep venous thrombosis of left lower extremity with decreased swelling. 2. Pulmonary embolism secondary to deep venous thrombosis. 3. Urinary retention with Brito catheter. 4. Questionable bladder tumor. 5. Hypertension. 6. Anemia. 7. Proteus growing in the patient's urine, requiring long-term IV antibiotics, which finished yesterday. 8. Some generalized weakness. PLAN: 1. The patient is unable to afford Eliquis, so we will start the patient on Coumadin. 2. Antibiotics finished last night. 3. Continue present medications. 4. Continue PT and OT. 5. Continue supportive care. 6. Start the patient on Coumadin 10 mg now and every morning. The patient wished to go home as soon as possible, so we will try to speed up his Coumadin loading. 7. Dr. Medina is on. We will return his call schedule at 9 o'clock this evening. Job ID: [id number]
[2018-12-12 15:54] LABS: INR-International Normal Ratio 1.5; Prothrombin Time 17.9 SEC (12.0-14.7)
[2018-12-12] MEDS: Warfarin Sodium 5 MG TAB PO SCH (17:44)
[2018-12-12] MEDS: Finasteride 5 MG TAB PO SCH (20:45)
[2018-12-13 06:05] LABS: INR-International Normal Ratio 1.5; Prothrombin Time 18.4 SEC (12.0-14.7)
[2018-12-13] MEDS: Potassium Chloride 20 MEQ TAB PO SCH ×2 (08:23→17:29)
[2018-12-13] MEDS: Tamsulosin HCl 0.4 MG CAP PO SCH (08:24)
[2018-12-13] MEDS: Apixaban 5 MG TAB PO SCH ×2 (08:24→20:39)
[2018-12-13] MEDS: Polyethylene Glycol 3350 17 GM Packet PO SCH (08:45)
[2018-12-13] MEDS: Senokot S 8.6-50 MG TAB PO SCH ×2 (08:46→20:39)
[2018-12-13] MEDS: FLAVOXATE 100 MG PO SCH ×3 (08:46→20:39)
[2018-12-13] MEDS: Trospium 20 MG TAB PO SCH ×2 (09:46→20:39)
[2018-12-13] MEDS ORDERED: Warfarin Sodium 5 MG TAB PO SCH (12:30)
--- NOTE | 2018-12-13 13:21 | PRG ---
DATE OF SERVICE: 12/13/2018 SUBJECTIVE: Mr. Rosales is doing well. He unfortunately had to stay back since he could not afford the Eliquis, so he is being titrated up on his warfarin. His INR is 1.5. Plan is to give him an extra 5 mg dose today. Hopefully, we will be able to get him to over 2 in the next day or 2. No other concerns or questions. His spouse is in the room. OBJECTIVE: VITAL SIGNS: He is afebrile. Heart rate 69, respirations 16, oxygen saturation 94% on room air, blood pressure 121/59. CARDIOVASCULAR: S1, S2 plus. RESPIRATORY: Normal vesicular breath sounds. ABDOMEN: Soft, nontender. Bowel sounds heard in all quadrants. EXTREMITIES: Without cyanosis or clubbing CENTRAL NERVOUS SYSTEM: AAO x3. Cranial nerves 2 through 12 are intact. Improving deconditioning. IMPRESSION: 1. Left lower extremity deep vein thrombosis and pulmonary embolism requiring long-term anticoagulation. 2. Urinary tract infection with Proteus. He has completed his 4 weeks of IV antibiotics. 3. History of bladder tumor. 4. Urinary retention requiring chronic Brito. 5. Hypertension. 6. Improving deconditioning. PLAN: 1. Continue current medications. 2. Heart healthy diet. 3. Brito catheter care. 4. Adjust warfarin. 5. Daily INR. 6. Activity as tolerated. 7. Anticipate discharge once INR is greater than 2. Job ID: [id number]
[2018-12-13] MEDS: Warfarin Sodium 5 MG TAB PO SCH (17:28)
[2018-12-13] MEDS: Finasteride 5 MG TAB PO SCH (20:39)
[2018-12-14 05:21] LABS: Hemoglobin 11.7 g/dL (14.0-18.0); Platelet Count 325 thou/uL (130-400)
[2018-12-14 05:27] LABS: INR-International Normal Ratio 1.6; Prothrombin Time 18.8 SEC (12.0-14.7)
[2018-12-14] MEDS: Tamsulosin HCl 0.4 MG CAP PO SCH (08:50)
[2018-12-14] MEDS: Apixaban 5 MG TAB PO SCH ×2 (08:50→20:18)
[2018-12-14] MEDS: Polyethylene Glycol 3350 17 GM Packet PO SCH (08:50)
[2018-12-14] MEDS: Trospium 20 MG TAB PO SCH ×2 (08:50→20:18)
[2018-12-14] MEDS: FLAVOXATE 100 MG PO SCH ×3 (08:50→20:18)
[2018-12-14] MEDS: Potassium Chloride 20 MEQ TAB PO SCH ×2 (08:50→17:25)
[2018-12-14] MEDS: Senokot S 8.6-50 MG TAB PO SCH ×2 (08:51→20:18)
[2018-12-14] MEDS ORDERED: Warfarin Sodium 5 MG TAB PO SCH (13:45)
--- NOTE | 2018-12-14 14:00 | PRG ---
DATE OF SERVICE: 12/14/2018 SUBJECTIVE: Mr. Rosales is doing well. Denies any complaints. Resting comfortably and tolerating his medications. His INR is 1.6 today. We will give him an extra 5 mg warfarin. He is ready for discharge once his INR is greater than 2. He does not need any home health at this point since he is done with all his antibiotics, activity wilson, he is able to do pretty much what he needs. OBJECTIVE: VITAL SIGNS: He is afebrile. Heart rate 70, respirations are 19, oxygen saturation 94% on room air, and blood pressure 131/77. CARDIOVASCULAR SYSTEM: S1 and S2 plus. RESPIRATORY SYSTEM: Normal vesicular breath sounds. ABDOMEN: Soft and nontender. Bowel sounds heard in all quadrants. EXTREMITIES: Without cyanosis or clubbing. CENTRAL NERVOUS SYSTEM: AAO x3. Cranial nerves II through XII intact. Grossly nonfocal. IMPRESSION: 1. Left lower extremity deep vein thrombosis and pulmonary embolism. 2. Urinary retention requiring Brito catheter placement. 3. Possible bladder tumor. 4. Resolved urinary tract infection with Proteus. 5. Hypertension. 6. Improved deconditioning. PLAN: 1. Given extra dose of warfarin 5 mg today for a total of 10 mg, daily PT/INR. 2. Heart healthy diet. 3. Brito catheter care. 4. DVT and stress ulcer prophylaxis. He remains on Eliquis. 5. Decubitus precautions. 6. Routine laboratory values. 7. Discussed with the patient and in detail. All questions were answered. Job ID: [id number]
[2018-12-14] MEDS: Warfarin Sodium 5 MG TAB PO SCH (17:25)
[2018-12-14] MEDS: Finasteride 5 MG TAB PO SCH (20:18)
[2018-12-15 05:43] LABS: INR-International Normal Ratio 1.7
[2018-12-15] MEDS: Polyethylene Glycol 3350 17 GM Packet PO SCH (08:12)
[2018-12-15] MEDS: Potassium Chloride 20 MEQ TAB PO SCH ×2 (08:12→16:43)
[2018-12-15] MEDS: FLAVOXATE 100 MG PO SCH ×3 (08:12→20:10)
[2018-12-15] MEDS: Apixaban 5 MG TAB PO SCH ×2 (08:12→20:10)
[2018-12-15] MEDS: Senokot S 8.6-50 MG TAB PO SCH ×2 (08:13→20:10)
[2018-12-15] MEDS: Tamsulosin HCl 0.4 MG CAP PO SCH (08:13)
[2018-12-15] MEDS: Trospium 20 MG TAB PO SCH ×2 (08:13→20:11)
[2018-12-15] MEDS ORDERED: Warfarin Sodium 5 MG TAB PO SCH ×2 (13:00→17:00)
--- NOTE | 2018-12-15 13:38 | PRG ---
DATE OF SERVICE: 12/15/2018 SUBJECTIVE: Mr. Rosales is doing well. Denies any complaints. Resting comfortably. He is on his way to see his urologist. His INR is still slightly up at 1.7, but not to goal. Apparently, nursing did not give his extra dose of warfarin on Thursday. He did get that extra 5 mg yesterday. We will give him an extra 7.5 mg today. Discussed with and nursing. OBJECTIVE: VITAL SIGNS: He is afebrile. Heart rate 71, respirations 18, oxygen saturation 94% on room air, blood pressure 130/73. CARDIOVASCULAR SYSTEM: S1, S2 plus. RESPIRATORY SYSTEMS: Normal vesicular breath sounds. ABDOMEN: Soft, obese, nontender. Bowel sounds in all quadrants. EXTREMITIES: Without cyanosis, clubbing. Peripheral pulses are palpable. CENTRAL NERVOUS SYSTEM: A and O x3. Cranial nerves 2 through 12 intact. IMPRESSION: 1. Resolved urinary tract infection with Proteus. 2. Urinary retention, requiring Brito catheter. 3. Possible bladder tumor. 4. Hypertension. 5. 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 PLAN: 1. Extra warfarin 7.5 mg today for a total of 12.5 mg. 2. Continue current medications. 3. Nutritional support. 4. Recheck PT/INR in the morning. 5. Discharge home once INR is greater than 2. Job ID: [id number]
[2018-12-15] MEDS: Warfarin Sodium 5 MG TAB PO SCH (16:43)
[2018-12-15] MEDS: Finasteride 5 MG TAB PO SCH (20:10)
[2018-12-16 05:22] LABS: Hemoglobin 12.2 g/dL (14.0-18.0); Platelet Count 351 thou/uL (130-400)
[2018-12-16 05:31] LABS: INR-International Normal Ratio 2.2; Prothrombin Time 24.2 SEC (12.0-14.7)
[2018-12-16 07:53] VITALS: BP 116/75; TEMP 97.5
[2018-12-16] MEDS: Potassium Chloride 20 MEQ TAB PO SCH (08:14)
[2018-12-16] MEDS: Apixaban 5 MG TAB PO SCH (08:15)
[2018-12-16] MEDS: Trospium 20 MG TAB PO SCH (08:15)
[2018-12-16] MEDS: Tamsulosin HCl 0.4 MG CAP PO SCH (08:15)
[2018-12-16] MEDS: FLAVOXATE 100 MG PO SCH (08:15)
[2018-12-16] MEDS: Polyethylene Glycol 3350 17 GM Packet PO SCH (08:15)
[2018-12-16] MEDS: Senokot S 8.6-50 MG TAB PO SCH (08:15)
--- NOTE | 2018-12-17 01:26 | DIS ---
DATE OF ADMISSION: 11/15/2018 DATE OF DISCHARGE: 12/16/2018 PRINCIPAL DIAGNOSES: 1. Left lower extremity deep venous thrombosis and pulmonary embolism requiring long-term anticoagulation. 2. Urinary tract infection with Proteus requiring long-term IV antibiotics, completed on 12/11. 3. Possible bladder tumor. 4. Urinary retention likely from BPH requiring Brito catheter. 5. Improving deconditioning. 6. Hypertension. 7. Hypokalemia, which has resolved with potassium replacement. 8. Resolved paralytic ileus. COMPLICATIONS: None. ADVERSE REACTIONS: None. PROCEDURES: None. CONSULTATIONS: None. HOSPITAL COURSE: The patient was admitted on 11/15/2018 after being diagnosed with left lower extremity DVT and PE, as well as UTI with Proteus. He was transferred here on Eliquis and IV antibiotics with Zosyn. He was noted to have nausea and vomiting and was diagnosed with paralytic ileus. His potassium level was 2.9, his potassium was replaced. He improved and his diet was slowly advanced. He started having bowel movements and slowly participating with therapy. He had completed his IV antibiotics and was deemed stable for discharge home on the when he found out that his Eliquis was very expensive from his insurance, so he did not want to take it, so he was started on Coumadin. He is started on Coumadin 5 mg daily, but also was given extra 5 mg to 7.5 mg every day based upon his INR, today it is 2.2. His Eliquis will be discontinued. He was deemed stable for discharge to home. The only 2 prescriptions he will need will be the potassium which I have reduced the dose from 40 mEq b.i.d. to 20 mEq daily since he is now off his antibiotics. He will have a PT/INR done on 12/20, here at the hospital and he is to follow up in my office in 2 weeks. We will also check a potassium level on 12/20. Activity as tolerated. Coumadin prudent diet. Brito catheter care. He actually is not going to be homebound, so he is aware that he will not qualify for home health and he states that he does not need them any way. His is there and she understands the risks. PHYSICAL EXAMINATION: VITAL SIGNS: On the day of discharge, he is afebrile, heart rate 93, respirations 20, oxygen saturation 98% on room air, blood pressure 116/75. CARDIOVASCULAR SYSTEM: S1-S2 plus. RESPIRATORY SYSTEM: Normal vesicular breath sounds. ABDOMEN: Soft, obese, nontender. Bowel sounds in all quadrants. EXTREMITIES: Without cyanosis, clubbing. Peripheral pulses are palpable. CENTRAL NERVOUS SYSTEM: AAO x3. Cranial nerves 2 through 12 intact. Improving deconditioning. DISCHARGE MEDICATIONS: 1. Coumadin 5 mg daily. 2. Proscar 5 mg daily. 3. Urispas 100 mg t.i.d. 4. MiraLAX 17 g in 8 ounces of water daily. 5. Potassium 20 mEq daily. 6. Flomax 0.4 mg daily. 7. Trospium 20 mg b.i.d. As stated, he is to follow up with me in 2 weeks. He is to follow up with Urology in a month. He is to call us with any questions or concerns. For full details, please see chart. Doctor-doctor prescriptions have been sent to [facility]. TIME SPENT: Total time spent on this discharge 35 minutes. Job ID: [id number]
== END 2018-12-16 13:30 | disposition home or self-care (01) | DRG 299 ==
LOC: NAV ACUTE 21:21
PROVIDERS: ADMIT Internal Medicine; ATTEND Internal Medicine
DX: I82.402 Acute embolism and thrombosis of unspecified deep veins of left lower extremity (principal); I26.99 Other pulmonary embolism without acute cor pulmonale; N39.0 Urinary tract infection, site not specified; K56.0 Paralytic ileus; N40.1 Benign prostatic hyperplasia with lower urinary tract symptoms; R33.8 Other retention of urine; R53.81 Other malaise; I10 Essential (primary) hypertension; E87.6 Hypokalemia; K59.00 Constipation, unspecified; B96.4 Proteus (mirabilis) (morganii) as the cause of diseases classified elsewhere; R31.9 Hematuria, unspecified; D49.4 Neoplasm of unspecified behavior of bladder; D63.8 Anemia in other chronic diseases classified elsewhere; N28.9 Disorder of kidney and ureter, unspecified; R53.1 Weakness; Z87.891 Personal history of nicotine dependence
CPT/HCPCS: 36415; 71045; 74018; 80048; 80053; 81001; 83735; 83880; 85014; 85018; 85025; 85049; 85610; 87086; C9113; J1650; J2543; J3480; J3490; J7050; J7620; Q0162

== ENCOUNTER 2020-04-11 15:54 | Emergency (ER) | payer MEDICARE, OTHER ==
[2020-04-11 16:26] LABS: #Basophils 0.1 thou/uL (0.0-0.2); #Eosinphils 0.2 thou/uL (0.0-0.7); #Lymphocytes 0.9 thou/uL (1.20-3.40); #Monocytes 0.7 thou/uL (0.11-0.59); %Basophils 0.7 % (0.0-1.0); %Eosinophils 2.9 % (0.0-10.0); %Lymphocytes 11.7 % (21.0-51.0); %Monocytes 8.4 % (0.0-10.0); %Neutrophils 76.4 % (42.0-75.0); Hemoglobin 10.7 g/dL (14.0-18.0); Mean Corpuscular HGB CONC 31.5 g/dL (32.0-36.0); Mean Corpuscular Hemoglobin 28.5 pg (27.0-31.0); Mean Corpuscular Volume 90.4 fL (78.0-98.0); Mean Platelet Volume 6.3 fL (7.4-10.4); Platelet Count 179 thou/uL (130-400); RBC Distribution Width 12.2 % (11.5-14.5); Red Blood Cell (RBC) Count 3.76 mill/uL (4.70-6.10); White Blood Cell (WBC) Count 7.8 thou/uL (4.8-10.8)
[2020-04-11] MEDS ORDERED: Sodium Chloride 0.9% 1,000 ML ONE ×3 (16:38→18:28)
[2020-04-11] MEDS ORDERED: Dextrose 5% in Water 250 ML ONE (16:39)
[2020-04-11] MEDS ORDERED: Sodium Chloride 0.9% 100 ML ONE (16:39)
[2020-04-11] MEDS ORDERED: cefTRIAXone\\ROCEPHIN 2 GM VIAL ONE (16:39)
[2020-04-11 16:41] LABS: ALT (SGPT) 8 U/L (8-55); AST (SGOT) 16 U/L (5-34); Albumin 3.2 g/dL (3.4-4.8); Alkaline Phosphatase 103 U/L (40-110); Anion Gap 14 mmol/L (10-20); BUN (Urea Nitrogen) 32 mg/dL (8.4-25.7); Bilirubin, Total 0.6 mg/dL (0.2-1.2); Calc. Creatinine Clearance 0 mL/min (70-130); Calcium 8.1 mg/dL (7.8-10.44); Carbon Dioxide 16 mmol/L (23-31); Chloride 103 mmol/L (98-107); Estimated GFR-MDRD 26; Globulin 3.8 g/dL (2.4-3.5); Glucose 141 mg/dL (83-110); Potassium 3.9 mmol/L (3.5-5.1); Sodium 129 mmol/L (136-145)
--- NOTE | 2020-04-11 16:57 | RAD ---
Exam: Chest one view HISTORY:Patient feels weak. Comparison: 11/22/2018 FINDINGS: Cardiac silhouette:Cardiomegaly Aorta: Atherosclerosis Pulmonary vessels: Normal Costophrenic angles: Limited evaluation of the left costophrenic angle. Small left-sided effusion can not be excluded. LUNGS: No definite masses or consolidation. Limited evaluation of the left lower lobe. Pneumothorax: None Osseous abnormalities: None IMPRESSION: Limited evaluation left lower lobe and left lung base. Dedicated two-view chest radiograp h is recommended
[2020-04-11] MEDS ORDERED: Acetaminophen 500 MG TAB ONE (17:01)
[2020-04-11 17:50] LABS: Bilirubin Negative (Negative); Blood, Urine Small (Negative); Clarity Turbid (Clear); Glucose, Urine (Dipstick) Negative (Negative); Ketone, Urine Negative (Negative); Leukocyte Large (Negative); Nitrite Negative (Negative); Protein, Urine (Dipstick) > or equal to 300 mg/dL (Neg-Trace); Specific Gravity, Urine 1.015 (1.005-1.030); pH, Urine 8.5 (5.0-9.0)
[2020-04-11 18:03] LABS: Bacteria/HPF 2+ HPF (None Seen); Squamous Epithelial 0-3 HPF (0-3); WBC/HPF Greater Than 50 HPF (0-3)
== END 2020-04-11 19:20 | disposition short-term general hospital (02) ==
LOC: NAV ERS 15:54
DX: N17.9 Acute kidney failure, unspecified (principal); I95.9 Hypotension, unspecified; I12.9 Hypertensive chronic kidney disease with stage 1 through stage 4 chronic kidney disease, or unspecified chronic kidney disease; N18.9 Chronic kidney disease, unspecified; E86.0 Dehydration; R50.9 Fever, unspecified; R53.1 Weakness; Z20.828 Contact with and (suspected) exposure to other viral communicable diseases; Z87.891 Personal history of nicotine dependence; Z79.899 Other long term (current) drug therapy
CPT/HCPCS: 51702; 71045; 80053; 81003; 81015; 83605; 85025; 87040; 87086; 87149; 96361; 96365; 96367; J0696; J3370; J7050; J7070

== ENCOUNTER 2020-07-02 03:25 | Emergency (ER) | payer MEDICARE ==
[2020-07-02 04:33] LABS: #Basophils 0.1 thou/uL (0.0-0.2); #Eosinphils 1.2 thou/uL (0.0-0.7); #Lymphocytes 1.2 thou/uL (1.20-3.40); #Monocytes 0.6 thou/uL (0.11-0.59); #Neutrophils 9.3 thou/uL (1.40-6.50); %Basophils 0.5 % (0.0-1.0); %Lymphocytes 9.5 % (21.0-51.0); %Neutrophils 74.9 % (42.0-75.0); Hemoglobin 13.3 g/dL (14.0-18.0); Mean Corpuscular HGB CONC 32.1 g/dL (32.0-36.0); Mean Corpuscular Hemoglobin 28.9 pg (27.0-31.0); Mean Corpuscular Volume 90.1 fL (78.0-98.0); Mean Platelet Volume 5.8 fL (7.4-10.4); Platelet Count 271 thou/uL (130-400); RBC Distribution Width 12.4 % (11.5-14.5); Red Blood Cell (RBC) Count 4.59 mill/uL (4.70-6.10); White Blood Cell (WBC) Count 12.4 thou/uL (4.8-10.8)
[2020-07-02 04:38] LABS: Bilirubin Negative (Negative); Blood, Urine Large (Negative); Clarity Cloudy (Clear); Glucose, Urine (Dipstick) Negative (Negative); Ketone, Urine Negative (Negative); Leukocyte Large (Negative); Nitrite Negative (Negative); Protein, Urine (Dipstick) 30 mg/dL (Neg-Trace); Specific Gravity, Urine 1.015 (1.005-1.030); Urobilinogen 0.2 mg/dL (Less than 2)
[2020-07-02 04:43] LABS: Bacteria/HPF 3+ HPF (None Seen); RBC/HPF Greater than 50 HPF (0-3); Squamous Epithelial 0-3 HPF (0-3); WBC/HPF Greater Than 50 HPF (0-3)
[2020-07-02 04:46] LABS: ALT (SGPT) 10 U/L (8-55); AST (SGOT) 16 U/L (5-34); Albumin 3.5 g/dL (3.4-4.8); Alkaline Phosphatase 130 U/L (40-110); Anion Gap 15 mmol/L (10-20); BUN (Urea Nitrogen) 31 mg/dL (8.4-25.7); Bilirubin, Total 0.4 mg/dL (0.2-1.2); Calc. Creatinine Clearance 0 mL/min (70-130); Calcium 9.3 mg/dL (7.8-10.44); Carbon Dioxide 20 mmol/L (23-31); Chloride 103 mmol/L (98-107); Estimated GFR-MDRD 33; Globulin 4.1 g/dL (2.4-3.5); Glucose 104 mg/dL (83-110); Potassium 4.3 mmol/L (3.5-5.1); Protein, Total 7.6 g/dL (5.8-8.1); Sodium 134 mmol/L (136-145)
== END 2020-07-02 07:35 | disposition home or self-care (01) ==
LOC: NAV ERS 03:25
DX: R33.9 Retention of urine, unspecified (principal); I95.9 Hypotension, unspecified; I10 Essential (primary) hypertension; Z87.891 Personal history of nicotine dependence; Z79.899 Other long term (current) drug therapy
CPT/HCPCS: 51702; 80053; 81003; 81015; 83605; 85025; 87040; 87077; 87086; 87186; 93005

== ENCOUNTER 2020-08-03 23:10 | Emergency (ER) | payer MEDICARE ==
[2020-08-04 00:34] LABS: Bilirubin Negative (Negative); Blood, Urine Large (Negative); Clarity Cloudy (Clear); Glucose, Urine (Dipstick) Negative (Negative); Ketone, Urine Negative (Negative); Leukocyte Large (Negative); Nitrite Negative (Negative); Protein, Urine (Dipstick) > or equal to 300 mg/dL (Neg-Trace); Urobilinogen 0.2 mg/dL (Less than 2)
[2020-08-04 00:35] LABS: Bacteria/HPF 2+ HPF (None Seen); RBC/HPF Greater than 50 HPF (0-3); Squamous Epithelial 0-3 HPF (0-3); WBC/HPF Greater Than 50 HPF (0-3)
== END 2020-08-04 01:05 | disposition home or self-care (01) ==
LOC: NAV ERS 23:10
DX: T83.511A Infection and inflammatory reaction due to indwelling urethral catheter, initial encounter (principal); I10 Essential (primary) hypertension; Z87.891 Personal history of nicotine dependence; Z79.899 Other long term (current) drug therapy; Z86.018 Personal history of other benign neoplasm
CPT/HCPCS: 51702; 81003; 81015

== ENCOUNTER 2020-09-17 22:22 | Emergency (ER) | payer MEDICARE | END 2020-09-17 23:25 | disposition home or self-care (01) | LOC: NAV ERS 22:22 | DX: T83.091A Other mechanical complication of indwelling urethral catheter, initial encounter (principal); I10 Essential (primary) hypertension; Z87.891 Personal history of nicotine dependence; Z79.899 Other long term (current) drug therapy | CPT/HCPCS: 51702 ==

== ENCOUNTER 2020-10-18 20:22 | Emergency (ER) | payer MEDICARE ==
[2020-10-18 20:59] LABS: Bilirubin Negative (Negative); Blood, Urine Large (Negative); Clarity Cloudy (Clear); Glucose, Urine (Dipstick) Negative (Negative); Ketone, Urine Negative (Negative); Leukocyte Large (Negative); Nitrite Negative (Negative); Protein, Urine (Dipstick) > or equal to 300 mg/dL (Neg-Trace); Urobilinogen 0.2 mg/dL (Less than 2); pH, Urine 7.5 (5.0-9.0)
[2020-10-18 21:01] LABS: Squamous Epithelial None Seen HPF (0-3); WBC/HPF Greater Than 50 HPF (0-3)
[2020-10-18 21:02] LABS: Bacteria/HPF 2+ HPF (None Seen)
[2020-10-18] MEDS ORDERED: Cephalexin 250 MG CAP ONE (21:14)
== END 2020-10-18 21:33 | disposition home or self-care (01) ==
LOC: NAV ERS 20:22
DX: T83.091A Other mechanical complication of indwelling urethral catheter, initial encounter (principal); N30.00 Acute cystitis without hematuria; I48.91 Unspecified atrial fibrillation; I10 Essential (primary) hypertension; Z87.891 Personal history of nicotine dependence
CPT/HCPCS: 51702; 81003; 81015; 87077; 87086

== ENCOUNTER 2020-11-16 19:01 | Emergency (ER) | payer MEDICARE | END 2020-11-16 20:19 | disposition home or self-care (01) | LOC: NAV ERS 19:01 | DX: T83.091A Other mechanical complication of indwelling urethral catheter, initial encounter (principal); I10 Essential (primary) hypertension; I48.91 Unspecified atrial fibrillation; Z86.711 Personal history of pulmonary embolism; Z85.51 Personal history of malignant neoplasm of bladder; Z87.891 Personal history of nicotine dependence | CPT/HCPCS: 51702 ==

== ENCOUNTER 2020-12-10 14:13 | Emergency (ER) | payer OTHER, MEDICARE ==
[2020-12-10] MEDS ORDERED: Boostrix 0.5 ML (Tdap) VIAL ONE (14:29)
[2020-12-10] MEDS ORDERED: Lidocaine 1% w/Epinephrine 1:100K 30 ML VIAL ONE (14:46)
[2020-12-10] MEDS ORDERED: Bacitracin 1 PK ONE (15:04)
== END 2020-12-10 15:29 | disposition home or self-care (01) ==
LOC: NAV ERS 14:13
DX: S01.81XA Laceration without foreign body of other part of head, initial encounter (principal); S01.21XA Laceration without foreign body of nose, initial encounter; I10 Essential (primary) hypertension; Z87.891 Personal history of nicotine dependence; W19.XXXA Unspecified fall, initial encounter
CPT/HCPCS: 12011; 70450; 72125; 90471; 90715

== ENCOUNTER 2020-12-15 05:54 | Emergency (ER) | payer MEDICARE, OTHER | END 2020-12-15 06:20 | disposition home or self-care (01) | LOC: NAV ERS 05:54 | DX: T83.011A Breakdown (mechanical) of indwelling urethral catheter, initial encounter (principal); I10 Essential (primary) hypertension; I48.91 Unspecified atrial fibrillation; Z87.891 Personal history of nicotine dependence; Z79.899 Other long term (current) drug therapy | CPT/HCPCS: 51702 ==

== ENCOUNTER 2021-02-07 16:31 | Emergency (ER) | payer MEDICARE ==
[2021-02-07 18:00] LABS: Bilirubin Negative (Negative); Blood, Urine Large (Negative); Clarity Slightly Cloudy (Clear); Glucose, Urine (Dipstick) Negative (Negative); Ketone, Urine Negative (Negative); Leukocyte Large (Negative); Nitrite Negative (Negative); Protein, Urine (Dipstick) > or equal to 300 mg/dL (Neg-Trace); Urobilinogen 0.2 mg/dL (Less than 2)
[2021-02-07 18:07] LABS: pH, Urine Greater/Equal 9.0 (5.0-9.0)
[2021-02-07 18:09] LABS: Squamous Epithelial 0-3 HPF (0-3); WBC/HPF Greater Than 50 HPF (0-3)
[2021-02-07 18:10] LABS: Bacteria/HPF 1+ HPF (None Seen)
== END 2021-02-07 17:37 | disposition home or self-care (01) ==
LOC: NAV ERS 16:31
DX: T83.091A Other mechanical complication of indwelling urethral catheter, initial encounter (principal); I48.91 Unspecified atrial fibrillation; Z86.711 Personal history of pulmonary embolism
CPT/HCPCS: 51702; 81003; 81015

== ENCOUNTER 2021-05-20 20:57 | Emergency (ER) | payer MEDICARE ==
[2021-05-20 23:32] LABS: Bilirubin Negative (Negative); Blood, Urine Moderate (Negative); Clarity Cloudy (Clear); Glucose, Urine (Dipstick) Negative (Negative); Ketone, Urine Negative (Negative); Leukocyte Large (Negative); Nitrite Negative (Negative); Protein, Urine (Dipstick) > or equal to 300 mg/dL (Neg-Trace); Urobilinogen 0.2 mg/dL (Less than 2); pH, Urine 8.5 (5.0-9.0)
[2021-05-20 23:33] LABS: Bacteria/HPF 4+ HPF (None Seen); RBC/HPF Greater than 50 HPF (0-3); Squamous Epithelial None Seen HPF (0-3); WBC/HPF Greater Than 50 HPF (0-3)
== END 2021-05-21 00:05 | disposition home or self-care (01) ==
LOC: NAV ERS 20:57
DX: R31.9 Hematuria, unspecified (principal); B37.2 Candidiasis of skin and nail; I10 Essential (primary) hypertension; I48.91 Unspecified atrial fibrillation; Z87.891 Personal history of nicotine dependence
CPT/HCPCS: 51703; 81003; 81015; 87077; 87086; 87186

== ENCOUNTER 2021-06-26 11:30 | Emergency (ER) | payer MEDICARE ==
[2021-06-26 12:24] LABS: #Basophils 0.1 thou/uL (0.0-0.2); #Eosinphils 0.2 thou/uL (0.0-0.7); #Lymphocytes 1.8 thou/uL (1.20-3.40); #Monocytes 0.7 thou/uL (0.11-0.59); #Neutrophils 8.9 thou/uL (1.40-6.50); %Basophils 0.5 % (0.0-1.0); %Eosinophils 1.8 % (0.0-10.0); %Lymphocytes 15.1 % (21.0-51.0); %Monocytes 6.1 % (0.0-10.0); %Neutrophils 76.5 % (42.0-75.0); Hemoglobin 14.8 g/dL (14.0-18.0); Mean Corpuscular HGB CONC 31.5 g/dL (32.0-36.0); Mean Corpuscular Hemoglobin 28.9 pg (27.0-31.0); Mean Corpuscular Volume 91.6 fL (78.0-98.0); Mean Platelet Volume 5.8 fL (7.4-10.4); Platelet Count 294 thou/uL (130-400); RBC Distribution Width 12.6 % (11.5-14.5); Red Blood Cell (RBC) Count 5.12 mill/uL (4.70-6.10); White Blood Cell (WBC) Count 11.6 thou/uL (4.8-10.8)
[2021-06-26 12:33] LABS: Lactic Acid 1.6 mmol/L (0.5-2.2)
[2021-06-26 12:43] LABS: ALT (SGPT) 12 U/L (8-55); AST (SGOT) 17 U/L (5-34); Albumin 3.8 g/dL (3.4-4.8); Alkaline Phosphatase 125 U/L (40-110); Anion Gap 15 mmol/L (10-20); BUN (Urea Nitrogen) 37 mg/dL (8.4-25.7); Bilirubin, Total 0.6 mg/dL (0.2-1.2); CK (CPK) 57 U/L (30-200); Calc. Creatinine Clearance 0 mL/min (70-130); Calcium 9.2 mg/dL (7.8-10.44); Carbon Dioxide 19 mmol/L (23-31); Chloride 106 mmol/L (98-107); Globulin 4.2 g/dL (2.4-3.5); Glucose 107 mg/dL (83-110); Potassium 4.4 mmol/L (3.5-5.1); Sodium 136 mmol/L (136-145)
[2021-06-26 13:03] LABS: Bilirubin Negative (Negative); Blood, Urine Large (Negative); Glucose, Urine (Dipstick) Negative (Negative); Ketone, Urine Negative (Negative); Leukocyte Moderate (Negative); Nitrite Positive (Negative); Protein, Urine (Dipstick) > or equal to 300 mg/dL (Neg-Trace); Specific Gravity, Urine 1.015 (1.005-1.030); Urobilinogen 0.2 mg/dL (Less than 2)
[2021-06-26] MEDS ORDERED: Diltiazem 125 MG/25 ML ONE (13:03)
[2021-06-26] MEDS ORDERED: cefTRIAXone\\ROCEPHIN 1 GM VIAL ONE (13:03)
[2021-06-26] MEDS ORDERED: Aspirin Chewable 81 MG TAB ONE (13:03)
[2021-06-26] MEDS ORDERED: Sodium Chloride 0.9% 100 ML ONE ×2 (13:03→13:17)
[2021-06-26 13:05] LABS: Clarity Cloudy (Clear)
[2021-06-26 13:13] LABS: Bacteria/HPF 4+ HPF (None Seen); RBC/HPF Greater than 50 HPF (0-3); Transitional Epithelial 0-3 HPF (None Seen); WBC/HPF Greater Than 50 HPF (0-3)
[2021-06-26] MEDS ORDERED: Enoxaparin Sodium 100 MG/ML SYRINGE ONE (13:37)
[2021-06-26] MEDS ORDERED: Sodium Chloride 0.9% 1,000 ML ONE (14:24)
[2021-06-26] MEDS ORDERED: Sodium Chloride 0.9% 500 ML ONE (14:24)
== END 2021-06-26 15:10 | disposition short-term general hospital (02) ==
LOC: NAV ERS 11:30
DX: A41.9 Sepsis, unspecified organism (principal); I48.91 Unspecified atrial fibrillation; N30.00 Acute cystitis without hematuria; R21 Rash and other nonspecific skin eruption; I10 Essential (primary) hypertension; Z87.891 Personal history of nicotine dependence
CPT/HCPCS: 51702; 71045; 80053; 81003; 81015; 82550; 83605; 83880; 84443; 84484; 85025; 87040; 87086; 93005; 96365; 96367; 96372; J0696; J1650; J3370; J3490; J7030; J7050

== ENCOUNTER 2021-08-13 22:17 | Inpatient (IN) | payer MEDICARE ==
[2021-08-14 06:35] LABS: #Basophils 0.1 thou/uL (0.0-0.2); #Eosinphils 0.3 thou/uL (0.0-0.7); #Lymphocytes 1.4 thou/uL (1.20-3.40); #Monocytes 0.4 thou/uL (0.11-0.59); #Neutrophils 2.9 thou/uL (1.40-6.50); %Eosinophils 6.4 % (0.0-10.0); %Lymphocytes 26.9 % (21.0-51.0); %Monocytes 7.5 % (0.0-10.0); %Neutrophils 58.1 % (42.0-75.0); Hemoglobin 10.1 g/dL (14.0-18.0); Mean Corpuscular HGB CONC 30.8 g/dL (32.0-36.0); Mean Corpuscular Hemoglobin 28.6 pg (27.0-31.0); Mean Corpuscular Volume 92.9 fL (78.0-98.0); Mean Platelet Volume 6.2 fL (7.4-10.4); Platelet Count 249 thou/uL (130-400); RBC Distribution Width 13.7 % (11.5-14.5); Red Blood Cell (RBC) Count 3.54 mill/uL (4.70-6.10); White Blood Cell (WBC) Count 5.1 thou/uL (4.8-10.8)
[2021-08-14 06:49] LABS: ALT (SGPT) 34 U/L (8-55); AST (SGOT) 37 U/L (5-34); Albumin 2.6 g/dL (3.4-4.8); Alkaline Phosphatase 98 U/L (40-110); Anion Gap 10 mmol/L (10-20); BUN (Urea Nitrogen) 9 mg/dL (8.4-25.7); Bilirubin, Total 0.4 mg/dL (0.2-1.2); Calc. Creatinine Clearance 60 mL/min (70-130); Calcium 8.6 mg/dL (7.8-10.44); Carbon Dioxide 26 mmol/L (23-31); Chloride 103 mmol/L (98-107); Globulin 3.8 g/dL (2.4-3.5); Glucose 93 mg/dL (83-110); Potassium 3.7 mmol/L (3.5-5.1); Protein, Total 6.4 g/dL (5.8-8.1); Sodium 135 mmol/L (136-145)
[2021-08-14] MEDS: Metoclopramide HCl 10 MG TAB PO SCH ×3 (08:51→16:54)
[2021-08-14] MEDS: Aspirin 325 MG TAB PO SCH (08:51)
[2021-08-14] MEDS: Nitrofurantoin Monohyd/M-Cryst 100 MG CAP PO SCH ×2 (08:52→20:35)
[2021-08-14] MEDS: Ciprofloxacin 0.3 % Oint 3.5 GM TUBE EA EYE SCH ×2 (11:15→20:00)
[2021-08-14] MEDS ORDERED: Warfarin Sodium 5 MG TAB PO SCH (17:00)
[2021-08-15 07:29] LABS: INR-International Normal Ratio 1.2; Prothrombin Time 14.8 sec (12.0-14.7)
[2021-08-15] MEDS: Metoclopramide HCl 10 MG TAB PO SCH ×2 (10:35→20:18)
[2021-08-15] MEDS: Nitrofurantoin Monohyd/M-Cryst 100 MG CAP PO SCH ×2 (10:37→20:17)
[2021-08-15] MEDS: Aspirin 325 MG TAB PO SCH (10:38)
[2021-08-15] MEDS: Ciprofloxacin 0.3 % Oint 3.5 GM TUBE EA EYE SCH ×2 (14:06→20:18)
[2021-08-15] MEDS ORDERED: Warfarin Sodium 2.5 MG TAB PO SCH (17:00)
[2021-08-16 06:39] LABS: INR-International Normal Ratio 1.1
[2021-08-16] MEDS: Aspirin 325 MG TAB PO SCH (08:41)
[2021-08-16] MEDS: Ciprofloxacin 0.3 % Oint 3.5 GM TUBE EA EYE SCH ×2 (08:42→20:34)
[2021-08-16] MEDS: Metoclopramide HCl 10 MG TAB PO SCH ×2 (08:42→20:34)
[2021-08-16] MEDS: Nitrofurantoin Monohyd/M-Cryst 100 MG CAP PO SCH ×2 (08:43→20:34)
[2021-08-16] MEDS: Mag-Al Plus 1200 MG/1200 MG/120 MG/30 ML UDCUP PO PRN (18:03)
[2021-08-16] MEDS ORDERED: Acetaminophen 325 MG TAB PO PRN (22:29)
[2021-08-16] MEDS ORDERED: Melatonin 3 MG TAB PO SCH (22:30)
[2021-08-16] MEDS ORDERED: Ondansetron ODT 4 MG TAB PO PRN (22:57)
[2021-08-16] MEDS ORDERED: Ondansetron ODT 4 MG TAB PO SCH (23:59)
[2021-08-17] MEDS: Mag-Al Plus 1200 MG/1200 MG/120 MG/30 ML UDCUP PO PRN (02:56)
[2021-08-17] MEDS: Aspirin 325 MG TAB PO SCH (08:21)
[2021-08-17] MEDS: Ciprofloxacin 0.3 % Oint 3.5 GM TUBE EA EYE SCH ×2 (08:21→20:35)
[2021-08-17] MEDS: Metoclopramide HCl 10 MG TAB PO SCH ×2 (08:22→20:34)
[2021-08-17] MEDS: Nitrofurantoin Monohyd/M-Cryst 100 MG CAP PO SCH ×2 (08:22→20:34)
[2021-08-17] MEDS ORDERED: Iopamidol 370 76% 100 ML VIAL ONE (09:00)
[2021-08-17] MEDS: Melatonin 3 MG TAB PO SCH (20:35)
[2021-08-18 05:35] VITALS: BMI 29.0
[2021-08-18] MEDS: Ciprofloxacin 0.3 % Oint 3.5 GM TUBE EA EYE SCH ×2 (08:50→21:33)
[2021-08-18] MEDS: Aspirin 325 MG TAB PO SCH (08:50)
[2021-08-18] MEDS: Metoclopramide HCl 10 MG TAB PO SCH ×2 (08:51→21:30)
[2021-08-18] MEDS: Nitrofurantoin Monohyd/M-Cryst 100 MG CAP PO SCH ×2 (08:51→21:30)
[2021-08-18] MEDS: Melatonin 3 MG TAB PO SCH (21:29)
[2021-08-19] MEDS: Ciprofloxacin 0.3 % Oint 3.5 GM TUBE EA EYE SCH (08:19)
[2021-08-19] MEDS: Aspirin 325 MG TAB PO SCH (08:19)
[2021-08-19] MEDS: Metoclopramide HCl 10 MG TAB PO SCH ×2 (08:19→21:08)
[2021-08-19] MEDS: Nitrofurantoin Monohyd/M-Cryst 100 MG CAP PO SCH ×2 (08:19→21:08)
[2021-08-19] MEDS ORDERED: Furosemide 20 MG TAB PO SCH (13:15)
[2021-08-19] MEDS ORDERED: Potassium Chloride 10 MEQ TAB PO SCH (13:15)
[2021-08-19] MEDS: Gentamicin Ophth Soln 0.3% 5 ml Bottle EA EYE SCH ×3 (14:04→21:09)
[2021-08-19] MEDS: Melatonin 3 MG TAB PO SCH (21:09)
[2021-08-20] MEDS: Gentamicin Ophth Soln 0.3% 5 ml Bottle EA EYE SCH ×6 (00:55→20:18)
[2021-08-20 06:45] LABS: #Basophils 0.1 thou/uL (0.0-0.2); #Eosinphils 0.5 thou/uL (0.0-0.7); #Lymphocytes 1.3 thou/uL (1.20-3.40); #Monocytes 0.6 thou/uL (0.11-0.59); #Neutrophils 3.4 thou/uL (1.40-6.50); %Basophils 1.1 % (0.0-1.0); %Eosinophils 8.9 % (0.0-10.0); %Lymphocytes 22.5 % (21.0-51.0); %Monocytes 10.1 % (0.0-10.0); %Neutrophils 57.4 % (42.0-75.0); Hemoglobin 10.7 g/dL (14.0-18.0); Mean Corpuscular HGB CONC 30.9 g/dL (32.0-36.0); Mean Corpuscular Hemoglobin 29.1 pg (27.0-31.0); Mean Corpuscular Volume 94.2 fL (78.0-98.0); Mean Platelet Volume 6.4 fL (7.4-10.4); Platelet Count 267 thou/uL (130-400); Red Blood Cell (RBC) Count 3.67 mill/uL (4.70-6.10); White Blood Cell (WBC) Count 5.9 thou/uL (4.8-10.8)
[2021-08-20 06:52] LABS: Anion Gap 11 mmol/L (10-20); BUN (Urea Nitrogen) 16 mg/dL (8.4-25.7); Calc. Creatinine Clearance 52 mL/min (70-130); Calcium 9.1 mg/dL (7.8-10.44); Carbon Dioxide 24 mmol/L (23-31); Chloride 101 mmol/L (98-107); Glucose 89 mg/dL (83-110); Potassium 4.3 mmol/L (3.5-5.1); Sodium 132 mmol/L (136-145)
[2021-08-20] MEDS: Aspirin 325 MG TAB PO SCH (07:42)
[2021-08-20] MEDS: Metoclopramide HCl 10 MG TAB PO SCH (07:43)
[2021-08-20] MEDS: Nitrofurantoin Monohyd/M-Cryst 100 MG CAP PO SCH ×2 (07:43→20:18)
[2021-08-20] MEDS: Furosemide 20 MG TAB PO SCH (07:43)
[2021-08-20] MEDS: Potassium Chloride 10 MEQ TAB PO SCH (07:43)
[2021-08-20 10:22] LABS: SARS-CoV-2 PCR by NAA Not Detected (NotDetected)
[2021-08-20] MEDS: Melatonin 3 MG TAB PO SCH (20:18)
[2021-08-21] MEDS: Gentamicin Ophth Soln 0.3% 5 ml Bottle EA EYE SCH ×6 (00:39→20:38)
[2021-08-21] MEDS: Potassium Chloride 10 MEQ TAB PO SCH (08:29)
[2021-08-21] MEDS: Furosemide 20 MG TAB PO SCH (08:29)
[2021-08-21] MEDS: Aspirin 325 MG TAB PO SCH (08:29)
[2021-08-21] MEDS: Melatonin 3 MG TAB PO SCH (20:38)
[2021-08-22] MEDS: Gentamicin Ophth Soln 0.3% 5 ml Bottle EA EYE SCH ×4 (01:30→08:16)
[2021-08-22] MEDS: Aspirin 325 MG TAB PO SCH (08:13)
[2021-08-22] MEDS: Potassium Chloride 10 MEQ TAB PO SCH (08:13)
[2021-08-22] MEDS: Furosemide 20 MG TAB PO SCH (08:14)
[2021-08-22 08:45] VITALS: BP 115/61; TEMP 98.2
== END 2021-08-22 11:25 | disposition home health service (06) | DRG 694 ==
LOC: NAV ACUTE 22:17 → UNDOADMIN 22:17
PROVIDERS: ADMIT Internal Medicine; ATTEND Internal Medicine
DX: N13.2 Hydronephrosis with renal and ureteral calculous obstruction (principal); J90 Pleural effusion, not elsewhere classified; I10 Essential (primary) hypertension; I48.0 Paroxysmal atrial fibrillation; M19.90 Unspecified osteoarthritis, unspecified site; N40.1 Benign prostatic hyperplasia with lower urinary tract symptoms; K29.70 Gastritis, unspecified, without bleeding; D63.8 Anemia in other chronic diseases classified elsewhere; R33.8 Other retention of urine; K31.84 Gastroparesis; G47.00 Insomnia, unspecified; N35.919 Unspecified urethral stricture, male, unspecified site; Z20.822 Contact with and (suspected) exposure to COVID-19; R53.81 Other malaise; Z86.718 Personal history of other venous thrombosis and embolism; Z86.711 Personal history of pulmonary embolism; Z90.89 Acquired absence of other organs; Z98.49 Cataract extraction status, unspecified eye; Z87.891 Personal history of nicotine dependence; Z79.82 Long term (current) use of aspirin; Z79.899 Other long term (current) drug therapy
CPT/HCPCS: 36415; 74176; 80048; 80053; 85025; 85610; Q9967; U0003; U0005

== ENCOUNTER 2021-09-03 19:39 | Emergency (ER) | payer MEDICARE | END 2021-09-03 21:42 | disposition home or self-care (01) | LOC: NAV ERS 19:39 | DX: T83.091A Other mechanical complication of indwelling urethral catheter, initial encounter (principal); I10 Essential (primary) hypertension; I48.91 Unspecified atrial fibrillation; Z87.891 Personal history of nicotine dependence | CPT/HCPCS: 51702 ==

== ENCOUNTER 2021-10-09 23:56 | Emergency (ER) | payer MEDICARE ==
[2021-10-10] MEDS ORDERED: Ketorolac Tromethamine 30 MG/ML VIAL ONE (00:23)
[2021-10-10 00:41] LABS: Bilirubin Negative (Negative); Blood, Urine Large (Negative); Clarity Cloudy (Clear); Glucose, Urine (Dipstick) Negative (Negative); Ketone, Urine Negative (Negative); Leukocyte Large (Negative); Nitrite Negative (Negative); Protein, Urine (Dipstick) > or equal to 300 mg/dL (Neg-Trace); Specific Gravity, Urine 1.025 (1.005-1.030); Urobilinogen 0.2 mg/dL (Less than 2)
[2021-10-10 00:50] LABS: Bacteria/HPF 4+ HPF (None Seen); Squamous Epithelial None Seen HPF (0-3); WBC/HPF Greater than 50 HPF (0-3)
[2021-10-10] MEDS ORDERED: Sodium Chloride 0.9% 1,000 ML ONE ×3 (01:07→03:25)
[2021-10-10 01:16] LABS: ALT (SGPT) 10 U/L (8-55); AST (SGOT) 20 U/L (5-34); Albumin 3.1 g/dL (3.4-4.8); Alkaline Phosphatase 104 U/L (40-110); Anion Gap 15 mmol/L (10-20); BUN (Urea Nitrogen) 32 mg/dL (8.4-25.7); Bilirubin, Total 0.5 mg/dL (0.2-1.2); Calc. Creatinine Clearance 0 mL/min (70-130); Chloride 103 mmol/L (98-107); Globulin 4.4 g/dL (2.4-3.5); Glucose 116 mg/dL (83-110); Potassium 4.4 mmol/L (3.5-5.1); Protein, Total 7.5 g/dL (5.8-8.1); Sodium 132 mmol/L (136-145)
[2021-10-10 01:24] LABS: Carbon Dioxide 18 mmol/L (23-31)
[2021-10-10] MEDS ORDERED: Sodium Chloride 0.9% 100 ML ONE (01:51)
[2021-10-10] MEDS ORDERED: cefTRIAXone\\ROCEPHIN 2 GM VIAL ONE (01:51)
[2021-10-10] MEDS ORDERED: Sodium Chloride 0.9% 250 ML 250 ML ONE (02:27)
[2021-10-10 02:34] LABS: #Basophils 0.1 thou/uL (0.0-0.2); #Eosinphils 0.2 thou/uL (0.0-0.7); #Lymphocytes 1.1 thou/uL (1.20-3.40); #Monocytes 0.5 thou/uL (0.11-0.59); #Neutrophils 8.2 thou/uL (1.40-6.50); %Basophils 0.7 % (0.0-1.0); %Lymphocytes 10.8 % (21.0-51.0); %Monocytes 4.6 % (0.0-10.0); Mean Corpuscular HGB CONC 31.5 g/dL (32.0-36.0); Mean Corpuscular Hemoglobin 28.5 pg (27.0-31.0); Mean Corpuscular Volume 90.4 fL (78.0-98.0); Mean Platelet Volume 5.1 fL (7.4-10.4); Platelet Count 247 thou/uL (130-400); RBC Distribution Width 13.7 % (11.5-14.5); Red Blood Cell (RBC) Count 4.22 mill/uL (4.70-6.10)
[2021-10-10] MEDS ORDERED: Sodium Chloride 0.9% 500 ML ONE (02:44)
[2021-10-10 02:57] LABS: SARS-CoV-2 NAA Rapid Test Not Detected (NotDetected)
[2021-10-10 03:47] LABS: Troponin I 0.017 ng/mL (< 0.028)
== END 2021-10-10 04:10 | disposition short-term general hospital (02) ==
LOC: NAV ERS 23:56
DX: T83.091A Other mechanical complication of indwelling urethral catheter, initial encounter (principal); A41.9 Sepsis, unspecified organism; N39.0 Urinary tract infection, site not specified; I12.9 Hypertensive chronic kidney disease with stage 1 through stage 4 chronic kidney disease, or unspecified chronic kidney disease; N18.30 Chronic kidney disease, stage 3 unspecified; D68.9 Coagulation defect, unspecified; I49.1 Atrial premature depolarization; I48.91 Unspecified atrial fibrillation; Z20.822 Contact with and (suspected) exposure to COVID-19; Z86.711 Personal history of pulmonary embolism; Z87.891 Personal history of nicotine dependence; Z79.01 Long term (current) use of anticoagulants; Z79.899 Other long term (current) drug therapy
CPT/HCPCS: 51702; 71045; 80053; 81003; 81015; 83605; 84484; 85025; 87040; 87077; 87086; 87186; 93005; 96365; 96367; 96375; J0696; J1885; J3370; J3490; J7030; J7050; U0002

== ENCOUNTER 2021-12-06 04:34 | Emergency (ER) | payer MEDICARE ==
[2021-12-06] MEDS ORDERED: Nitrofurantoin Macrocrystal 50 MG CAP ONE (05:08)
== END 2021-12-06 05:15 | disposition home or self-care (01) ==
LOC: NAV ERS 04:34
DX: T83.098A Other mechanical complication of other urinary catheter, initial encounter (principal); N39.0 Urinary tract infection, site not specified; I10 Essential (primary) hypertension; I48.91 Unspecified atrial fibrillation; Z87.891 Personal history of nicotine dependence; Z79.01 Long term (current) use of anticoagulants; Z79.899 Other long term (current) drug therapy
CPT/HCPCS: 51702; 87086

== ENCOUNTER 2021-12-25 20:26 | Emergency (ER) | payer MEDICARE ==
[2021-12-25] MEDS ORDERED: Nystatin Powder 15 GM BOT TOP SCH (21:30)
[2021-12-25 22:26] LABS: Bilirubin Negative (Negative); Clarity Cloudy (Clear); Glucose, Urine (Dipstick) Negative (Negative); Ketone, Urine Negative (Negative); Leukocyte Large (Negative); Nitrite Positive (Negative); Protein, Urine (Dipstick) 100 mg/dL (Neg-Trace); Urobilinogen 0.2 mg/dL (Less than 2); pH, Urine 7.5 (5.0-9.0)
[2021-12-25 22:27] LABS: Bacteria/HPF 1+ HPF (None Seen); Blood, Urine Moderate (Negative); Squamous Epithelial None Seen HPF (0-3); WBC/HPF Greater than 50 HPF (0-3)
== END 2021-12-25 22:41 | disposition home or self-care (01) ==
LOC: NAV ERS 20:26
DX: T83.091A Other mechanical complication of indwelling urethral catheter, initial encounter (principal); N39.0 Urinary tract infection, site not specified; B35.6 Tinea cruris; I10 Essential (primary) hypertension; Z87.891 Personal history of nicotine dependence
CPT/HCPCS: 51702; 81003; 81015; 87077; 87086

== ENCOUNTER 2022-02-10 18:47 | Emergency (ER) | payer MEDICARE ==
[2022-02-10 19:39] LABS: Bilirubin Negative (Negative); Blood, Urine Moderate (Negative); Clarity Turbid (Clear); Glucose, Urine (Dipstick) Negative (Negative); Ketone, Urine Negative (Negative); Leukocyte Large (Negative); Nitrite Positive (Negative); Protein, Urine (Dipstick) > or equal to 300 mg/dL (Neg-Trace); Urobilinogen 0.2 mg/dL (Less than 2); pH, Urine 8.5 (5.0-9.0)
[2022-02-10 19:49] LABS: Bacteria/HPF 4+ HPF (None Seen); Mucous/LPF 1+ LPF (<2+); WBC/HPF Greater than 50 HPF (0-3)
== END 2022-02-10 19:54 | disposition home or self-care (01) ==
LOC: NAV ERS 18:47
DX: T83.091A Other mechanical complication of indwelling urethral catheter, initial encounter (principal); I10 Essential (primary) hypertension; I48.91 Unspecified atrial fibrillation; Z86.711 Personal history of pulmonary embolism; Z87.891 Personal history of nicotine dependence; Z79.01 Long term (current) use of anticoagulants; Z79.899 Other long term (current) drug therapy
CPT/HCPCS: 51702; 81003; 81015

== ENCOUNTER 2022-03-06 06:10 | Emergency (ER) | payer MEDICARE ==
[2022-03-06 07:49] LABS: Bilirubin Negative (Negative); Blood, Urine Large (Negative); Clarity Cloudy (Clear); Glucose, Urine (Dipstick) Negative (Negative); Ketone, Urine Negative (Negative); Leukocyte Large (Negative); Nitrite Negative (Negative); Protein, Urine (Dipstick) 100 mg/dL (Neg-Trace); Urobilinogen 0.2 mg/dL (Less than 2)
[2022-03-06 07:59] LABS: Bacteria/HPF Rare-Few HPF (None Seen); RBC/HPF Greater than 50 HPF (0-3); Renal Epithelial 0-3 HPF (None Seen); Squamous Epithelial 0-3 HPF (0-3); WBC/HPF Greater Than 50 HPF (0-3)
== END 2022-03-06 08:40 | disposition home or self-care (01) ==
LOC: NAV ERS 06:10
DX: T83.9XXA Unspecified complication of genitourinary prosthetic device, implant and graft, initial encounter (principal); R33.9 Retention of urine, unspecified; Z87.891 Personal history of nicotine dependence; I48.91 Unspecified atrial fibrillation; I10 Essential (primary) hypertension; Z79.899 Other long term (current) drug therapy
CPT/HCPCS: 51702; 81003; 81015; 87086

== ENCOUNTER 2022-03-29 23:27 | Emergency (ER) | payer MEDICARE ==
[2022-03-30 01:29] LABS: Bilirubin Negative (Negative); Blood, Urine Large (Negative); Clarity Cloudy (Clear); Glucose, Urine (Dipstick) Negative (Negative); Ketone, Urine Negative (Negative); Leukocyte Large (Negative); Nitrite Negative (Negative); Protein, Urine (Dipstick) 100 mg/dL (Neg-Trace); Urobilinogen 0.2 mg/dL (Less than 2)
[2022-03-30 01:32] LABS: Bacteria/HPF None Seen HPF (None Seen); Squamous Epithelial None Seen HPF (0-3); WBC/HPF Greater than 50 HPF (0-3)
== END 2022-03-30 01:45 | disposition home or self-care (01) ==
LOC: NAV ERS 23:27
DX: T83.091A Other mechanical complication of indwelling urethral catheter, initial encounter (principal); I10 Essential (primary) hypertension; Z87.891 Personal history of nicotine dependence
CPT/HCPCS: 51702; 81003; 81015; 87077; 87086; 87186

== ENCOUNTER 2022-04-16 14:38 | Emergency (ER) | payer MEDICARE ==
[2022-04-16 15:31] LABS: Bilirubin Negative (Negative); Blood, Urine Large (Negative); Glucose, Urine (Dipstick) Negative (Negative); Ketone, Urine Negative (Negative); Leukocyte Large (Negative); Nitrite Positive (Negative); Protein, Urine (Dipstick) 100 mg/dL (Neg-Trace); Urobilinogen 0.2 mg/dL (Less than 2); pH, Urine 7.5 (5.0-9.0)
[2022-04-16 15:32] LABS: Clarity Cloudy (Clear)
[2022-04-16 15:39] LABS: Bacteria/HPF 3+ HPF (None Seen); Squamous Epithelial 0-3 HPF (0-3); WBC/HPF Greater Than 50 HPF (0-3)
[2022-04-16] MEDS ORDERED: Acetaminophen 325 MG TAB ONE (15:41)
== END 2022-04-16 16:06 | disposition home or self-care (01) ==
LOC: NAV ERS 14:38
DX: T83.091A Other mechanical complication of indwelling urethral catheter, initial encounter (principal); N39.0 Urinary tract infection, site not specified; Z87.891 Personal history of nicotine dependence
CPT/HCPCS: 51702; 81003; 81015; 87086

== ENCOUNTER 2022-05-18 01:15 | Emergency (ER) | payer MEDICARE | END 2022-05-18 02:40 | disposition home or self-care (01) | LOC: NAV ERS 01:15 | DX: T83.091A Other mechanical complication of indwelling urethral catheter, initial encounter (principal); I10 Essential (primary) hypertension; Z87.891 Personal history of nicotine dependence | CPT/HCPCS: 51702 ==

== ENCOUNTER 2022-06-08 22:24 | Emergency (ER) | payer MEDICARE | END 2022-06-08 23:35 | disposition home or self-care (01) | LOC: NAV ERS 22:24 | DX: T83.098A Other mechanical complication of other urinary catheter, initial encounter (principal); I10 Essential (primary) hypertension | CPT/HCPCS: 51702 ==

== ENCOUNTER 2022-06-21 01:49 | Emergency (ER) | payer MEDICARE | END 2022-06-21 02:41 | disposition home or self-care (01) | LOC: NAV ERS 01:49 | DX: T83.091A Other mechanical complication of indwelling urethral catheter, initial encounter (principal); I10 Essential (primary) hypertension; Z87.891 Personal history of nicotine dependence | CPT/HCPCS: 51702 ==

== ENCOUNTER 2022-07-01 19:50 | Emergency (ER) | payer MEDICARE | END 2022-07-01 21:02 | disposition home or self-care (01) | LOC: NAV ERS 19:50 | DX: T83.9XXA Unspecified complication of genitourinary prosthetic device, implant and graft, initial encounter (principal); I48.91 Unspecified atrial fibrillation; I10 Essential (primary) hypertension; Z87.891 Personal history of nicotine dependence | CPT/HCPCS: 99282 ==

== ENCOUNTER 2022-07-14 20:08 | Emergency (ER) | payer MEDICARE | END 2022-07-14 21:15 | disposition home or self-care (01) | LOC: NAV ERS 20:08 | DX: Z46.6 Encounter for fitting and adjustment of urinary device (principal); R33.9 Retention of urine, unspecified; I10 Essential (primary) hypertension; Z87.891 Personal history of nicotine dependence | CPT/HCPCS: 51702 ==

== ENCOUNTER 2022-08-05 21:17 | Emergency (ER) | payer MEDICARE | END 2022-08-05 23:50 | disposition home or self-care (01) | LOC: NAV ERS 21:17 | DX: T83.091A Other mechanical complication of indwelling urethral catheter, initial encounter (principal); I10 Essential (primary) hypertension; Z87.891 Personal history of nicotine dependence; Z86.711 Personal history of pulmonary embolism | CPT/HCPCS: 51702 ==

== ENCOUNTER 2022-08-18 01:19 | Emergency (ER) | payer MEDICARE | END 2022-08-18 02:20 | disposition home or self-care (01) | LOC: NAV ERS 01:19 | DX: T83.091A Other mechanical complication of indwelling urethral catheter, initial encounter (principal); I10 Essential (primary) hypertension; Y84.6 Urinary catheterization as the cause of abnormal reaction of the patient, or of later complication, without mention of misadventure at the time of the procedure; Z87.891 Personal history of nicotine dependence | CPT/HCPCS: 51702 ==

== ENCOUNTER 2022-08-29 07:13 | Emergency (ER) | payer MEDICARE ==
[2022-08-29 08:10] LABS: Bilirubin Negative (Negative); Blood, Urine Large (Negative); Clarity Cloudy (Clear); Glucose, Urine (Dipstick) Negative (Negative); Ketone, Urine Negative (Negative); Leukocyte Large (Negative); Nitrite Positive (Negative); Protein, Urine (Dipstick) 100 mg/dL (Neg-Trace); Specific Gravity, Urine 1.015 (1.005-1.030); Urobilinogen 0.2 mg/dL (Less than 2); pH, Urine 7.5 (5.0-9.0)
[2022-08-29 08:20] LABS: Bacteria/HPF 1+ HPF (None Seen); Squamous Epithelial None Seen HPF (0-3); WBC/HPF Greater than 50 HPF (0-3)
[2022-08-29 08:44] LABS: #Eosinphils 0.2 thou/uL (0.0-0.7); #Lymphocytes 1.2 thou/uL (1.20-3.40); #Monocytes 0.5 thou/uL (0.11-0.59); #Neutrophils 5.7 thou/uL (1.40-6.50); %Basophils 0.5 % (0.0-1.0); %Eosinophils 3.1 % (0.0-10.0); %Monocytes 6.1 % (0.0-10.0); %Neutrophils 74.4 % (42.0-75.0); Hemoglobin 13.4 g/dL (14.0-18.0); Mean Corpuscular Hemoglobin 29.4 pg (27.0-31.0); Mean Corpuscular Volume 91.7 fl (78.0-98.0); Mean Platelet Volume 6.5 fL (7.4-10.4); Platelet Count 222 10x3/uL (130-400); RBC Distribution Width 12.1 % (11.5-14.5); Red Blood Cell (RBC) Count 4.55 mill/uL (4.70-6.10); White Blood Cell (WBC) Count 7.6 10x3/uL (4.8-10.8)
[2022-08-29 08:46] LABS: ALT (SGPT) 12 U/L (8-55); AST (SGOT) 18 U/L (5-34); Albumin 3.3 g/dL (3.4-4.8); Alkaline Phosphatase 117 U/L (40-110); Anion Gap 13 mmol/L (10-20); BUN (Urea Nitrogen) 40 mg/dL (8.4-25.7); Bilirubin, Total 0.4 mg/dL (0.2-1.2); Calc. Creatinine Clearance 0 mL/min (70-130); Carbon Dioxide 20 mmol/L (23-31); Chloride 106 mmol/L (98-107); Estimated GFR 29; Globulin 4.2 g/dL (2.4-3.5); Glucose 97 mg/dL (83-110); Potassium 3.9 mmol/L (3.5-5.1); Protein, Total 7.5 g/dL (5.8-8.1); Sodium 135 mmol/L (136-145)
[2022-08-29] MEDS ORDERED: cefTRIAXone\\ROCEPHIN 2 GM VIAL ONE (08:54)
[2022-08-29] MEDS ORDERED: Sodium Chloride 0.9% 2,000 ML ONE (08:54)
[2022-08-29] MEDS ORDERED: Vancomycin 1 GM VIAL ONE (09:50)
[2022-08-29] MEDS ORDERED: Sodium Chloride 0.9% 1,000 ML ONE (09:50)
[2022-08-29] MEDS ORDERED: Sodium Chloride 0.9% 500 ML ONE (09:51)
[2022-08-29 11:47] LABS: SARS-CoV-2 NAA Rapid Test Not Detected (NotDetected)
== END 2022-08-29 13:31 | disposition short-term general hospital (02) ==
LOC: NAV ERS 07:13
DX: N39.0 Urinary tract infection, site not specified (principal); A41.9 Sepsis, unspecified organism; I95.9 Hypotension, unspecified; I10 Essential (primary) hypertension; Z20.822 Contact with and (suspected) exposure to COVID-19; Z87.891 Personal history of nicotine dependence
CPT/HCPCS: 51702; 71045; 80053; 81003; 81015; 83605; 85025; 87040; 87077; 87086; 87186; 96365; 96367; J0696; J3370; J7030; J7050; U0002

== ENCOUNTER 2022-11-30 16:22 | Emergency (ER) | payer MEDICARE | END 2022-11-30 17:33 | disposition home or self-care (01) | LOC: NAV ERS 16:22 | DX: T85.618A Breakdown (mechanical) of other specified internal prosthetic devices, implants and grafts, initial encounter (principal); I10 Essential (primary) hypertension; Z87.891 Personal history of nicotine dependence; Z79.899 Other long term (current) drug therapy | CPT/HCPCS: 51702; 99283 ==

== ENCOUNTER 2022-12-25 01:53 | Emergency (ER) | payer MEDICARE | END 2022-12-25 02:45 | disposition home or self-care (01) | LOC: NAV ERS 01:53 | DX: R33.9 Retention of urine, unspecified (principal); T83.098A Other mechanical complication of other urinary catheter, initial encounter; Y84.6 Urinary catheterization as the cause of abnormal reaction of the patient, or of later complication, without mention of misadventure at the time of the procedure; Z79.01 Long term (current) use of anticoagulants; Z87.891 Personal history of nicotine dependence | CPT/HCPCS: 51702 ==

== ENCOUNTER 2023-01-06 01:55 | Emergency (ER) | payer MEDICARE | END 2023-01-06 02:44 | disposition home or self-care (01) | LOC: NAV ERS 01:55 | DX: T83.091A Other mechanical complication of indwelling urethral catheter, initial encounter (principal); I10 Essential (primary) hypertension; Z87.891 Personal history of nicotine dependence; Z79.899 Other long term (current) drug therapy; Z79.01 Long term (current) use of anticoagulants | CPT/HCPCS: 51702 ==

== ENCOUNTER 2023-01-21 19:57 | Emergency (ER) | payer MEDICARE | END 2023-01-21 20:54 | disposition home or self-care (01) | LOC: NAV ERS 19:57 | DX: T83.098A Other mechanical complication of other urinary catheter, initial encounter (principal); I10 Essential (primary) hypertension | CPT/HCPCS: 51702 ==

== ENCOUNTER 2023-03-04 21:24 | Emergency (ER) | payer MEDICARE | END 2023-03-04 22:17 | disposition home or self-care (01) | LOC: NAV ERS 21:24 | DX: T83.098A Other mechanical complication of other urinary catheter, initial encounter (principal); I10 Essential (primary) hypertension; Y84.6 Urinary catheterization as the cause of abnormal reaction of the patient, or of later complication, without mention of misadventure at the time of the procedure; Z87.891 Personal history of nicotine dependence | CPT/HCPCS: 51702 ==

== ENCOUNTER 2023-04-23 08:13 | Emergency (ER) | payer MEDICARE | END 2023-04-23 09:35 | disposition home or self-care (01) | LOC: NAV ERS 08:13 | DX: T83.098A Other mechanical complication of other urinary catheter, initial encounter (principal); R33.9 Retention of urine, unspecified; I10 Essential (primary) hypertension; I48.91 Unspecified atrial fibrillation; Z87.891 Personal history of nicotine dependence; Z86.711 Personal history of pulmonary embolism | CPT/HCPCS: 51702 ==

== ENCOUNTER 2023-06-26 13:08 | Emergency (ER) | payer MEDICARE | END 2023-06-26 14:04 | disposition home or self-care (01) | LOC: NAV ERS 13:08 | DX: T83.098A Other mechanical complication of other urinary catheter, initial encounter (principal); I10 Essential (primary) hypertension; I48.91 Unspecified atrial fibrillation; Z87.891 Personal history of nicotine dependence; Z86.711 Personal history of pulmonary embolism; Z79.01 Long term (current) use of anticoagulants; Z79.899 Other long term (current) drug therapy | CPT/HCPCS: 51702 ==

== ENCOUNTER 2023-07-26 16:25 | Emergency (ER) | payer MEDICARE ==
[2023-07-26] MEDS ORDERED: Acetaminophen 500 MG TAB ONE (17:47)
[2023-07-26] MEDS ORDERED: Ondansetron PF 4 MG/2 ML Vial ONE (17:47)
[2023-07-26 17:48] LABS: #Basophils 0.1 thou/uL (0.0-0.2); #Eosinphils 0.3 thou/uL (0.0-0.7); #Lymphocytes 1.7 thou/uL (1.20-3.40); #Monocytes 0.9 thou/uL (0.11-0.59); #Neutrophils 9.2 thou/uL (1.40-6.50); %Basophils 0.5 % (0.0-1.0); %Eosinophils 2.5 % (0.0-10.0); %Lymphocytes 13.7 % (21.0-51.0); %Monocytes 7.1 % (0.0-10.0); %Neutrophils 76.1 % (42.0-75.0); Hematocrit 35.6 % (42.0-52.0); Hemoglobin 11.6 g/dL (14.0-18.0); Mean Corpuscular HGB CONC 32.6 g/dL (32.0-36.0); Mean Corpuscular Hemoglobin 28.8 pg (27.0-31.0); Mean Corpuscular Volume 88.4 fl (78.0-98.0); Mean Platelet Volume 5.6 fL (7.4-10.4); Platelet Count 470 10x3/uL (130-400); RBC Distribution Width 11.8 % (11.5-14.5); Red Blood Cell (RBC) Count 4.03 mill/uL (4.70-6.10); White Blood Cell (WBC) Count 12.1 10x3/uL (4.8-10.8)
[2023-07-26] MEDS ORDERED: Piperacillin/Tazobactam 4.5 GM VIAL ONE (18:04)
[2023-07-26] MEDS ORDERED: Vancomycin 1 GM VIAL ONE (18:04)
[2023-07-26] MEDS ORDERED: Sodium Chloride 0.9% 100 ML ONE (18:04)
[2023-07-26] MEDS ORDERED: Sodium Chloride 0.9% 500 ML ONE (18:04)
[2023-07-26 18:05] LABS: Troponin I 0.019 ng/mL (< 0.028)
[2023-07-26 18:07] LABS: ALT (SGPT) 25 U/L (8-55); AST (SGOT) 31 U/L (5-34); Albumin 3.2 g/dL (3.4-4.8); Alkaline Phosphatase 102 U/L (40-110); Anion Gap 20 mmol/L (10-20); BUN (Urea Nitrogen) 52 mg/dL (8.4-25.7); Bilirubin, Total 0.3 mg/dL (0.2-1.2); Calc. Creatinine Clearance 0 mL/min (70-130); Calcium 9.2 mg/dL (7.8-10.44); Carbon Dioxide 17 mmol/L (23-31); Chloride 105 mmol/L (98-107); Estimated GFR 18; Globulin 5.2 g/dL (2.4-3.5); Glucose 117 mg/dL (83-110); Lipase 11 U/L (8-78); Magnesium 1.9 mg/dL (1.6-2.6); Potassium 4.9 mmol/L (3.5-5.1); Protein, Total 8.4 g/dL (5.8-8.1); Sodium 137 mmol/L (136-145)
[2023-07-26 18:27] LABS: SARS-CoV-2 NAA Rapid Test Not Detected (NotDetected)
[2023-07-26] MEDS ORDERED: Sodium Chloride 0.9% 2,000 ML ONE (18:51)
[2023-07-26 18:57] LABS: Bacteria/HPF 4+ HPF (None Seen); Bilirubin Negative (Negative); Blood, Urine Large (Negative); CAUTI Indications for Culture Pelvic or flank pain; Clarity Turbid (Clear); Glucose, Urine (Dipstick) Negative (Negative); Ketone, Urine Negative (Negative); Leukocyte Large (Negative); Nitrite Negative (Negative); Protein, Urine (Dipstick) > or equal to 300 mg/dL (Neg-Trace); Specific Gravity, Urine 1.025 (1.005-1.030); Squamous Epithelial None Seen HPF (0-3); Urobilinogen 0.2 mg/dL (Less than 2); WBC/HPF Greater Than 50 HPF (0-3); pH, Urine 8.5 (5.0-9.0)
[2023-07-26 18:58] LABS: Urine Culture Reflex Yes Yes
[2023-07-26] MEDS ORDERED: Sodium Chloride 0.9% 1,000 ML ONE ×2 (19:37→21:25)
[2023-07-26] MEDS ORDERED: Norepinephrine 4 MG/4 ML VIAL ONE ×2 (19:37→19:43)
[2023-07-26] MEDS ORDERED: Sodium Chloride 0.9% 250 ML 250 ML ONE (19:43)
== END 2023-07-26 21:41 | disposition short-term general hospital (02) ==
LOC: NAV ERS 16:25
DX: A41.9 Sepsis, unspecified organism (principal); R65.21 Severe sepsis with septic shock; N17.9 Acute kidney failure, unspecified; N39.0 Urinary tract infection, site not specified; I10 Essential (primary) hypertension; Z87.891 Personal history of nicotine dependence
CPT/HCPCS: 36415; 51702; 71045; 74176; 80053; 81001; 83605; 83690; 83735; 83880; 84484; 85025; 87040; 87077; 87086; 87149; 87186; 93005; 94760; 96360; 96365; 96366; 96367; 96375; J2405; J2543; J3370; J3490; J7030; J7050

== ENCOUNTER 2023-09-19 11:39 | Inpatient (IN) | payer MEDICARE ==
[2023-09-19 13:52] VITALS: BMI 27.1
[2023-09-19] MEDS ORDERED: Ondansetron ODT 4 MG TAB SL PRN (14:22)
[2023-09-19] MEDS ORDERED: Senokot S 8.6-50 MG TAB PO PRN (14:22)
[2023-09-19] MEDS: Metoprolol Tartrate 25 MG TAB PO SCH (20:15)
[2023-09-19] MEDS: Apixaban 5 MG TAB PO SCH (20:15)
[2023-09-19] MEDS: Aztreonam 2 GM in Sodium Chloride 0.9% 100 ML IVPB SCH (20:18)
[2023-09-20] MEDS: Aztreonam 2 GM in Sodium Chloride 0.9% 100 ML IVPB SCH ×3 (04:18→20:28)
[2023-09-20 05:24] LABS: #Basophils 0.1 thou/uL (0.0-0.2); #Eosinphils 1.2 thou/uL (0.0-0.7); #Lymphocytes 1.7 thou/uL (1.20-3.40); #Monocytes 0.7 thou/uL (0.11-0.59); #Neutrophils 9.1 thou/uL (1.40-6.50); %Basophils 0.5 % (0.0-1.0); %Eosinophils 9.2 % (0.0-10.0); %Lymphocytes 13.2 % (21.0-51.0); %Monocytes 5.7 % (0.0-10.0); %Neutrophils 71.3 % (42.0-75.0); Hematocrit 28.7 % (42.0-52.0); Hemoglobin 9.3 g/dL (14.0-18.0); Mean Corpuscular HGB CONC 32.4 g/dL (32.0-36.0); Mean Corpuscular Hemoglobin 27.9 pg (27.0-31.0); Mean Corpuscular Volume 86.3 fl (78.0-98.0); Mean Platelet Volume 5.6 fL (7.4-10.4); Platelet Count 257 10x3/uL (130-400); RBC Distribution Width 13.1 % (11.5-14.5); Red Blood Cell (RBC) Count 3.33 mill/uL (4.70-6.10); White Blood Cell (WBC) Count 12.7 10x3/uL (4.8-10.8)
[2023-09-20 05:34] LABS: ALT (SGPT) 23 U/L (8-55); AST (SGOT) 20 U/L (5-34); Albumin 2.7 g/dL (3.4-4.8); Alkaline Phosphatase 77 U/L (40-110); Anion Gap 11 mmol/L (10-20); BUN (Urea Nitrogen) 29 mg/dL (8.4-25.7); Bilirubin, Total 0.3 mg/dL (0.2-1.2); Calc. Creatinine Clearance 57 mL/min (70-130); Calcium 9.2 mg/dL (7.8-10.44); Estimated GFR 58; Globulin 3.8 g/dL (2.4-3.5); Protein, Total 6.5 g/dL (5.8-8.1)
[2023-09-20 05:42] LABS: Carbon Dioxide 26 mmol/L (23-31); Chloride 106 mmol/L (98-107); Glucose 92 mg/dL (83-110); Sodium 137 mmol/L (136-145)
[2023-09-20] MEDS ORDERED: Famotidine 20 MG TAB PO SCH (09:00)
[2023-09-20] MEDS: Metoprolol Tartrate 25 MG TAB PO SCH ×2 (10:08→20:28)
[2023-09-20] MEDS: Apixaban 5 MG TAB PO SCH ×2 (10:09→20:28)
[2023-09-20] MEDS: Acetaminophen 325 MG TAB PO PRN (10:21)
[2023-09-21] MEDS: Aztreonam 2 GM in Sodium Chloride 0.9% 100 ML IVPB SCH ×3 (04:02→20:24)
[2023-09-21] MEDS: Apixaban 5 MG TAB PO SCH ×2 (08:44→20:21)
[2023-09-21] MEDS: Famotidine 20 MG TAB PO SCH (08:44)
[2023-09-21] MEDS: Metoprolol Tartrate 25 MG TAB PO SCH ×2 (08:45→20:21)
[2023-09-21] MEDS: Acetaminophen 325 MG TAB PO PRN ×2 (09:53→20:22)
[2023-09-21] MEDS ORDERED: HumaLOG 300 UNITS/3 ML VIAL SC PRN ×2 (11:28)
[2023-09-21] MEDS ORDERED: Glucagon 1 MG/ML KIT IM PRN (11:28)
[2023-09-21] MEDS ORDERED: Dextrose 50% Abboject 50 ML SYRINGE SLOW IVP PRN (11:28)
[2023-09-22 06:01] LABS: #Basophils 0.1 thou/uL (0.0-0.2); #Eosinphils 1.2 thou/uL (0.0-0.7); #Lymphocytes 1.5 thou/uL (1.20-3.40); #Monocytes 0.7 thou/uL (0.11-0.59); #Neutrophils 8.1 thou/uL (1.40-6.50); %Basophils 0.5 % (0.0-1.0); %Eosinophils 10.6 % (0.0-10.0); %Neutrophils 69.8 % (42.0-75.0); Hematocrit 28.5 % (42.0-52.0); Mean Corpuscular HGB CONC 31.7 g/dL (32.0-36.0); Mean Corpuscular Hemoglobin 27.6 pg (27.0-31.0); Mean Corpuscular Volume 87.2 fl (78.0-98.0); Mean Platelet Volume 6.1 fL (7.4-10.4); Platelet Count 248 10x3/uL (130-400); RBC Distribution Width 13.5 % (11.5-14.5); Red Blood Cell (RBC) Count 3.27 mill/uL (4.70-6.10); White Blood Cell (WBC) Count 11.6 10x3/uL (4.8-10.8)
[2023-09-22 06:09] LABS: Anion Gap 12 mmol/L (10-20); BUN (Urea Nitrogen) 32 mg/dL (8.4-25.7); Calc. Creatinine Clearance 55 mL/min (70-130); Calcium 9.2 mg/dL (7.8-10.44); Carbon Dioxide 22 mmol/L (23-31); Chloride 107 mmol/L (98-107); Estimated GFR 56; Glucose 83 mg/dL (83-110); Potassium 3.7 mmol/L (3.5-5.1); Sodium 137 mmol/L (136-145)
[2023-09-22] MEDS: Famotidine 20 MG TAB PO SCH (08:23)
[2023-09-22] MEDS: Apixaban 5 MG TAB PO SCH ×2 (08:23→20:52)
[2023-09-22] MEDS: Metoprolol Tartrate 25 MG TAB PO SCH ×2 (08:23→20:51)
[2023-09-22] MEDS: Acetaminophen 325 MG TAB PO PRN (08:45)
[2023-09-23] MEDS: Metoprolol Tartrate 25 MG TAB PO SCH ×2 (09:30→20:26)
[2023-09-23] MEDS: Famotidine 20 MG TAB PO SCH (09:30)
[2023-09-23] MEDS: Apixaban 5 MG TAB PO SCH ×2 (09:30→20:27)
[2023-09-24] MEDS: Metoprolol Tartrate 25 MG TAB PO SCH ×2 (07:58→21:03)
[2023-09-24] MEDS: Apixaban 5 MG TAB PO SCH ×2 (07:59→21:03)
[2023-09-24] MEDS: Famotidine 20 MG TAB PO SCH (07:59)
[2023-09-24] MEDS: Acetaminophen 325 MG TAB PO PRN (12:43)
[2023-09-24] MEDS ORDERED: Acetaminophen/Codeine 30-300mg Tablet PO PRN (15:26)
[2023-09-25] MEDS: Famotidine 20 MG TAB PO SCH (09:11)
[2023-09-25] MEDS: Metoprolol Tartrate 25 MG TAB PO SCH ×2 (09:12→21:15)
[2023-09-25] MEDS: Apixaban 5 MG TAB PO SCH ×2 (09:12→21:16)
[2023-09-25 12:03] LABS: Anion Gap 11 mmol/L (10-20); BUN (Urea Nitrogen) 24 mg/dL (8.4-25.7); Calc. Creatinine Clearance 50 mL/min (70-130); Calcium 9.5 mg/dL (7.8-10.44); Carbon Dioxide 23 mmol/L (23-31); Chloride 104 mmol/L (98-107); Estimated GFR 50; Glucose 111 mg/dL (83-110); Potassium 3.7 mmol/L (3.5-5.1); Sodium 134 mmol/L (136-145)
[2023-09-25 12:16] LABS: #Basophils 0.1 thou/uL (0.0-0.2); #Eosinphils 0.8 thou/uL (0.0-0.7); #Lymphocytes 1.1 thou/uL (1.20-3.40); #Monocytes 0.5 thou/uL (0.11-0.59); %Basophils 0.6 % (0.0-1.0); %Eosinophils 8.3 % (0.0-10.0); %Lymphocytes 11.4 % (21.0-51.0); %Monocytes 5.3 % (0.0-10.0); %Neutrophils 74.3 % (42.0-75.0); Hematocrit 28.5 % (42.0-52.0); Hemoglobin 9.3 g/dL (14.0-18.0); Mean Corpuscular HGB CONC 32.7 g/dL (32.0-36.0); Mean Corpuscular Hemoglobin 28.2 pg (27.0-31.0); Mean Corpuscular Volume 86.3 fl (78.0-98.0); Mean Platelet Volume 5.9 fL (7.4-10.4); Platelet Count 241 10x3/uL (130-400); RBC Distribution Width 13.3 % (11.5-14.5); White Blood Cell (WBC) Count 9.5 10x3/uL (4.8-10.8)
[2023-09-25 21:19] LABS: #Eosinphils 0.8 thou/uL (0.0-0.7); #Lymphocytes 1.2 thou/uL (1.20-3.40); #Monocytes 0.5 thou/uL (0.11-0.59); %Basophils 0.4 % (0.0-1.0); %Eosinophils 8.2 % (0.0-10.0); %Lymphocytes 12.4 % (21.0-51.0); %Neutrophils 73.9 % (42.0-75.0); Hematocrit 29.2 % (42.0-52.0); Hemoglobin 9.6 g/dL (14.0-18.0); Mean Corpuscular HGB CONC 32.8 g/dL (32.0-36.0); Mean Corpuscular Hemoglobin 28.3 pg (27.0-31.0); Mean Corpuscular Volume 86.1 fl (78.0-98.0); Mean Platelet Volume 6.1 fL (7.4-10.4); Platelet Count 247 10x3/uL (130-400); RBC Distribution Width 13.2 % (11.5-14.5); Red Blood Cell (RBC) Count 3.39 mill/uL (4.70-6.10); White Blood Cell (WBC) Count 9.4 10x3/uL (4.8-10.8)
[2023-09-25 21:34] LABS: ALT (SGPT) 46 U/L (8-55); AST (SGOT) 55 U/L (5-34); Albumin 2.9 g/dL (3.4-4.8); Alkaline Phosphatase 117 U/L (40-110); Anion Gap 12 mmol/L (10-20); BUN (Urea Nitrogen) 24 mg/dL (8.4-25.7); Bilirubin, Total 0.4 mg/dL (0.2-1.2); Calc. Creatinine Clearance 48 mL/min (70-130); Calcium 9.7 mg/dL (7.8-10.44); Carbon Dioxide 21 mmol/L (23-31); Chloride 104 mmol/L (98-107); Estimated GFR 48; Globulin 4.5 g/dL (2.4-3.5); Glucose 127 mg/dL (83-110); Potassium 3.9 mmol/L (3.5-5.1); Protein, Total 7.4 g/dL (5.8-8.1); Sodium 133 mmol/L (136-145)
[2023-09-25 22:47] LABS: Clarity Turbid (Clear); Specific Gravity, Urine 1.015 (1.005-1.030)
[2023-09-25 22:48] LABS: Glucose, Urine (Dipstick) Negative (Negative); Ketone, Urine Negative (Negative); Leukocyte Large (Negative); Nitrite Positive (Negative); Protein, Urine (Dipstick) 100 mg/dL (Neg-Trace); pH, Urine 7.5 (5.0-9.0)
[2023-09-25 22:49] LABS: Bacteria/HPF 4+ HPF (None Seen); Bilirubin Negative (Negative); Blood, Urine Large (Negative); RBC/HPF Greater than 50 HPF (0-3); Squamous Epithelial None Seen HPF (0-3); Urobilinogen 0.2 mg/dL (Less than 2); WBC/HPF Greater than 50 HPF (0-3)
[2023-09-26] MEDS: Ciprofloxacin 500 MG TAB PO SCH ×2 (05:09→20:28)
[2023-09-26 05:38] LABS: #Eosinphils 0.5 thou/uL (0.0-0.7); #Lymphocytes 0.9 thou/uL (1.20-3.40); #Monocytes 0.5 thou/uL (0.11-0.59); #Neutrophils 7.1 thou/uL (1.40-6.50); %Basophils 0.5 % (0.0-1.0); %Eosinophils 5.6 % (0.0-10.0); %Lymphocytes 9.9 % (21.0-51.0); %Monocytes 5.3 % (0.0-10.0); %Neutrophils 78.7 % (42.0-75.0); Hematocrit 31.1 % (42.0-52.0); Hemoglobin 9.9 g/dL (14.0-18.0); Mean Corpuscular HGB CONC 31.8 g/dL (32.0-36.0); Mean Corpuscular Hemoglobin 27.6 pg (27.0-31.0); Mean Corpuscular Volume 86.7 fl (78.0-98.0); Mean Platelet Volume 5.9 fL (7.4-10.4); Platelet Count 267 10x3/uL (130-400); RBC Distribution Width 13.5 % (11.5-14.5); Red Blood Cell (RBC) Count 3.58 mill/uL (4.70-6.10)
[2023-09-26 06:02] LABS: Anion Gap 14 mmol/L (10-20); BUN (Urea Nitrogen) 30 mg/dL (8.4-25.7); Calc. Creatinine Clearance 38 mL/min (70-130); Calcium 9.7 mg/dL (7.8-10.44); Carbon Dioxide 21 mmol/L (23-31); Chloride 104 mmol/L (98-107); Estimated GFR 36; Glucose 101 mg/dL (83-110); Potassium 4.3 mmol/L (3.5-5.1); Sodium 135 mmol/L (136-145)
[2023-09-26] MEDS: Famotidine 20 MG TAB PO SCH (08:14)
[2023-09-26] MEDS: Metoprolol Tartrate 25 MG TAB PO SCH ×2 (08:14→20:28)
[2023-09-26] MEDS: Apixaban 5 MG TAB PO SCH ×2 (08:14→20:28)
[2023-09-26 20:50] VITALS: BP 93/54; TEMP 98.5
== END 2023-09-26 21:15 | disposition short-term general hospital (02) | DRG 948 ==
LOC: NAV ACUTE 13:34
PROVIDERS: ADMIT Family Medicine; ATTEND Family Medicine
DX: R53.81 Other malaise (principal); N17.9 Acute kidney failure, unspecified; C67.9 Malignant neoplasm of bladder, unspecified; I48.0 Paroxysmal atrial fibrillation; N18.9 Chronic kidney disease, unspecified; I12.9 Hypertensive chronic kidney disease with stage 1 through stage 4 chronic kidney disease, or unspecified chronic kidney disease; E11.22 Type 2 diabetes mellitus with diabetic chronic kidney disease; R13.10 Dysphagia, unspecified; Z96.0 Presence of urogenital implants; Z98.49 Cataract extraction status, unspecified eye; Z98.890 Other specified postprocedural states; Z90.89 Acquired absence of other organs; Z82.49 Family history of ischemic heart disease and other diseases of the circulatory system; Z83.3 Family history of diabetes mellitus; Z87.891 Personal history of nicotine dependence; Z88.2 Allergy status to sulfonamides; Z88.8 Allergy status to other drugs, medicaments and biological substances; Z88.5 Allergy status to narcotic agent; Z86.718 Personal history of other venous thrombosis and embolism; Z86.711 Personal history of pulmonary embolism
CPT/HCPCS: 36415; 36416; 71045; 80048; 80053; 81003; 81015; 83605; 85025; J0457; J3490